=== PATIENT | male | born 1965 | race Caucasian/White ===

== ENCOUNTER 2020-07-06 12:16 | Inpatient (IN) ==
[2020-07-06] MEDS ORDERED: *HR* Dextrose 50 % in Water (Vial) 50 ML VIAL IVP PRN (16:55)
[2020-07-06] MEDS ORDERED: D5% in Water 1,000 ML IVC PRN (16:55)
[2020-07-06] MEDS ORDERED: Dextrose Gel 15 GM/37.5 ML TUBE PO PRN ×2 (16:55)
[2020-07-06] MEDS ORDERED: Insulin DETEMIR 100 UNIT/ML X5UNITS SUBQ SCH (21:00)
[2020-07-06] MEDS: Doxycycline 100 MG CAPSULE PO SCH (21:54)
[2020-07-06] MEDS: *HR* OxyCODONE/APAP 5/325 TABLET PO PRN (21:54)
[2020-07-06] MEDS: Insulin LISPRO 300 UNITS/3 ML VIAL SUBQ SCH (21:55)
[2020-07-06] MEDS: Insulin DETEMIR 100 UNIT/ML per UNIT SUBQ SCH (21:55)
[2020-07-07 06:34] LABS: Basophils % 0.4 %; Eosinophils # 0.6 K/mcL (0.0-0.6); Eosinophils % 5.8 %; Hematocrit 31.6 % (37.5-50.1); Hemoglobin 9.3 g/dL (12.9-16.9); Immature Granulocytes % 1.1 % (0-4); Lymphocytes # 1.6 K/mcL (0.6-4.6); Lymphocytes % 15.1 %; Mean Corpuscular HGB Conc 29.4 g/dL (31.6-35.5); Mean Corpuscular Hemoglobin 25.8 pg (28.0-33.3); Mean Corpuscular Volume 87.8 fL (83.0-100.0); Mean Platelet Volume 9.6 fL (9.4-12.4); Monocytes # 0.9 K/mcL (0.0-1.3); Monocytes % 8.6 %; Neutrophils # 7.5 K/mcL (1.6-8.9); Platelet Count 238 K/mcL (140-400); Red Cell Distribution Width 14.7 % (11.5-14.5); White Blood Count 10.9 K/mcL (4.3-11.1)
[2020-07-07 06:53] LABS: BUN/Creatinine Ratio 21 (6-26); Blood Urea Nitrogen 23 mg/dL (6-20); Calcium 8.8 mg/dL (8.6-10.3); Carbon Dioxide 31 mEq/L (23-29); Chloride 97 mEq/L (98-107); Glucose 238 mg/dL (70-105); Osmolality,Calculated 293 (280-300); Sodium 136 mEq/L (136-145); eGFR For African Americans > 60 (> 60); eGFR For Non-African Americans > 60 (> 60)
[2020-07-07] MEDS: Cholecalciferol (D-3) 1,000 UNIT (25MCG) TABLET PO SCH (08:06)
[2020-07-07] MEDS: Doxycycline 100 MG CAPSULE PO SCH ×2 (08:07→20:11)
[2020-07-07] MEDS: Furosemide 20 MG TABLET PO SCH (08:07)
[2020-07-07] MEDS: Aspirin Enteric Coated 81 MG Tablet PO SCH (08:07)
[2020-07-07] MEDS: levoFLOXacin 500 MG TABLET PO SCH (08:07)
[2020-07-07] MEDS: carvediloL 6.25 MG TABLET PO SCH ×2 (08:07→17:04)
[2020-07-07] MEDS: Insulin LISPRO 300 UNITS/3 ML VIAL SUBQ SCH ×4 (08:08→20:12)
[2020-07-07] MEDS: *HR* Enoxaparin 40 MG/0.4 ML SYRINGE SQ SCH (08:10)
[2020-07-07] MEDS: polyethylene glycoL 3350 17 GM POWD.PACK PO SCH (08:11)
[2020-07-07] MEDS: ZINC 50 MG PO SCH (08:11)
[2020-07-07] MEDS: *HR* OxyCODONE/APAP 5/325 TABLET PO PRN ×3 (08:21→23:44)
[2020-07-07] MEDS: Benzonatate 100 MG CAPSULE PO PRN (10:01)
[2020-07-07] MEDS: Ipratropium/Albuterol Neb 3 ML IH SCH ×3 (13:04→22:09)
[2020-07-07] MEDS: Insulin DETEMIR 100 UNIT/ML per UNIT SUBQ SCH (20:11)
[2020-07-08] MEDS: Ipratropium/Albuterol Neb 3 ML IH SCH ×4 (04:03→22:09)
[2020-07-08] MEDS: *HR* Enoxaparin 40 MG/0.4 ML SYRINGE SQ SCH (09:14)
[2020-07-08] MEDS: Insulin LISPRO 300 UNITS/3 ML VIAL SUBQ SCH ×4 (09:14→21:33)
[2020-07-08] MEDS: Furosemide 20 MG TABLET PO SCH (09:15)
[2020-07-08] MEDS: Cholecalciferol (D-3) 1,000 UNIT (25MCG) TABLET PO SCH (09:15)
[2020-07-08] MEDS: levoFLOXacin 500 MG TABLET PO SCH (09:15)
[2020-07-08] MEDS: *HR* OxyCODONE/APAP 5/325 TABLET PO PRN ×3 (09:15→22:33)
[2020-07-08] MEDS: polyethylene glycoL 3350 17 GM POWD.PACK PO SCH (09:15)
[2020-07-08] MEDS: carvediloL 6.25 MG TABLET PO SCH ×2 (09:15→16:28)
[2020-07-08] MEDS: Doxycycline 100 MG CAPSULE PO SCH ×2 (09:15→21:35)
[2020-07-08] MEDS: Aspirin Enteric Coated 81 MG Tablet PO SCH (09:16)
[2020-07-08] MEDS: ZINC 50 MG PO SCH (09:16)
[2020-07-08] MEDS: Sennosides/Docusate Sodium TABLET PO PRN (16:28)
[2020-07-08] MEDS: Insulin DETEMIR 100 UNIT/ML per UNIT SUBQ SCH (21:33)
[2020-07-09] MEDS: Ipratropium/Albuterol Neb 3 ML IH SCH ×4 (04:16→22:12)
[2020-07-09] MEDS: *HR* OxyCODONE/APAP 5/325 TABLET PO PRN ×3 (06:29→19:34)
[2020-07-09] MEDS: Doxycycline 100 MG CAPSULE PO SCH ×2 (08:39→20:03)
[2020-07-09] MEDS: *HR* Enoxaparin 40 MG/0.4 ML SYRINGE SQ SCH (08:39)
[2020-07-09] MEDS: Furosemide 20 MG TABLET PO SCH (08:39)
[2020-07-09] MEDS: levoFLOXacin 500 MG TABLET PO SCH (08:39)
[2020-07-09] MEDS: carvediloL 6.25 MG TABLET PO SCH ×2 (08:39→16:31)
[2020-07-09] MEDS: Aspirin Enteric Coated 81 MG Tablet PO SCH (08:39)
[2020-07-09] MEDS: Cholecalciferol (D-3) 1,000 UNIT (25MCG) TABLET PO SCH (08:40)
[2020-07-09] MEDS: Insulin LISPRO 300 UNITS/3 ML VIAL SUBQ SCH ×4 (08:40→20:14)
[2020-07-09] MEDS: ZINC 50 MG PO SCH (08:40)
[2020-07-09] MEDS: polyethylene glycoL 3350 17 GM POWD.PACK PO SCH (08:40)
[2020-07-09] MEDS: Sennosides/Docusate Sodium TABLET PO PRN (08:41)
[2020-07-09] MEDS: Benzonatate 100 MG CAPSULE PO PRN ×2 (12:01→20:03)
[2020-07-09] MEDS: Insulin DETEMIR 100 UNIT/ML X5UNITS SUBQ SCH (20:15)
[2020-07-10] MEDS: Ipratropium/Albuterol Neb 3 ML IH SCH ×4 (04:07→21:14)
[2020-07-10] MEDS: Furosemide 20 MG TABLET PO SCH (07:46)
[2020-07-10] MEDS: Doxycycline 100 MG CAPSULE PO SCH ×2 (07:46→21:27)
[2020-07-10] MEDS: carvediloL 6.25 MG TABLET PO SCH ×2 (07:46→16:16)
[2020-07-10] MEDS: *HR* OxyCODONE/APAP 5/325 TABLET PO PRN ×3 (07:46→21:27)
[2020-07-10] MEDS: levoFLOXacin 500 MG TABLET PO SCH (07:47)
[2020-07-10] MEDS: Cholecalciferol (D-3) 1,000 UNIT (25MCG) TABLET PO SCH (07:47)
[2020-07-10] MEDS: Aspirin Enteric Coated 81 MG Tablet PO SCH (07:47)
[2020-07-10] MEDS: Benzonatate 100 MG CAPSULE PO PRN ×2 (07:47→16:16)
[2020-07-10] MEDS: Sennosides/Docusate Sodium TABLET PO PRN (07:47)
[2020-07-10] MEDS: *HR* Enoxaparin 40 MG/0.4 ML SYRINGE SQ SCH (07:48)
[2020-07-10] MEDS: Insulin LISPRO 300 UNITS/3 ML VIAL SUBQ SCH ×4 (07:48→21:28)
[2020-07-10] MEDS: ZINC 50 MG PO SCH (07:55)
[2020-07-10] MEDS: polyethylene glycoL 3350 17 GM POWD.PACK PO SCH (07:55)
[2020-07-10] MEDS: Fluticasone Propionate Nasal 50 MCG/SPRAY BOTTLE NS SCH (09:32)
[2020-07-10 15:51] LABS: Bilirubin,Urine Negative (Negative); Blood,Urine Negative (Negative); Clarity,Urine Clear (Clear); Color,Urine Yellow (Yellow); Glucose,Urine (UA) 100 mg/dL (Normal); Ketones,Urine Negative (Negative); Leukocyte Esterase,Urine Negative (Negative); Nitrite,Urine Negative (Negative); Protein,Urine Negative (Neg-Trace); Urobilinogen,Urine Normal (Normal)
[2020-07-10 16:00] LABS: Mucus,Urine Few per lpf (None-Few)
[2020-07-10] MEDS: Insulin DETEMIR 100 UNIT/ML X5UNITS SUBQ SCH ×2 (21:37→21:43)
[2020-07-11] MEDS: Ipratropium/Albuterol Neb 3 ML IH SCH ×4 (03:45→21:04)
[2020-07-11] MEDS: *HR* OxyCODONE/APAP 5/325 TABLET PO PRN ×3 (05:28→20:50)
[2020-07-11] MEDS: Fluticasone Propionate Nasal 50 MCG/SPRAY BOTTLE NS SCH (07:43)
[2020-07-11] MEDS: Furosemide 20 MG TABLET PO SCH (07:44)
[2020-07-11] MEDS: Benzonatate 100 MG CAPSULE PO PRN ×2 (07:44→20:50)
[2020-07-11] MEDS: Aspirin Enteric Coated 81 MG Tablet PO SCH (07:44)
[2020-07-11] MEDS: Cholecalciferol (D-3) 1,000 UNIT (25MCG) TABLET PO SCH (07:44)
[2020-07-11] MEDS: levoFLOXacin 500 MG TABLET PO SCH (07:44)
[2020-07-11] MEDS: carvediloL 6.25 MG TABLET PO SCH ×2 (07:44→16:48)
[2020-07-11] MEDS: Doxycycline 100 MG CAPSULE PO SCH ×2 (07:45→20:50)
[2020-07-11] MEDS: *HR* Enoxaparin 40 MG/0.4 ML SYRINGE SQ SCH (07:45)
[2020-07-11] MEDS: Insulin LISPRO 300 UNITS/3 ML VIAL SUBQ SCH ×4 (07:46→20:51)
[2020-07-11] MEDS: ZINC 50 MG PO SCH (07:47)
[2020-07-11] MEDS: Sennosides/Docusate Sodium TABLET PO PRN (09:07)
[2020-07-11] MEDS: Insulin DETEMIR 100 UNIT/ML X5UNITS SUBQ SCH ×2 (09:07→20:50)
[2020-07-12] MEDS: Ipratropium/Albuterol Neb 3 ML IH SCH ×4 (04:02→21:23)
[2020-07-12] MEDS: Fluticasone Propionate Nasal 50 MCG/SPRAY BOTTLE NS SCH (08:45)
[2020-07-12] MEDS: Insulin LISPRO 300 UNITS/3 ML VIAL SUBQ SCH ×4 (08:46→20:48)
[2020-07-12] MEDS: Insulin DETEMIR 100 UNIT/ML X5UNITS SUBQ SCH ×2 (08:46→20:48)
[2020-07-12] MEDS: *HR* Enoxaparin 40 MG/0.4 ML SYRINGE SQ SCH (08:47)
[2020-07-12] MEDS: Sennosides/Docusate Sodium TABLET PO PRN (08:52)
[2020-07-12] MEDS: Cholecalciferol (D-3) 1,000 UNIT (25MCG) TABLET PO SCH (08:52)
[2020-07-12] MEDS: Aspirin Enteric Coated 81 MG Tablet PO SCH (08:52)
[2020-07-12] MEDS: Doxycycline 100 MG CAPSULE PO SCH ×2 (08:52→20:49)
[2020-07-12] MEDS: *HR* OxyCODONE/APAP 5/325 TABLET PO PRN ×2 (08:52→15:06)
[2020-07-12] MEDS: levoFLOXacin 500 MG TABLET PO SCH (08:52)
[2020-07-12] MEDS: carvediloL 6.25 MG TABLET PO SCH ×2 (08:53→17:40)
[2020-07-12] MEDS: Furosemide 20 MG TABLET PO SCH (08:53)
[2020-07-12] MEDS: ZINC 50 MG PO SCH (08:54)
[2020-07-12] MEDS: Benzonatate 100 MG CAPSULE PO PRN (15:06)
[2020-07-13] MEDS: *HR* OxyCODONE/APAP 5/325 TABLET PO PRN ×3 (03:30→17:18)
[2020-07-13] MEDS: Ipratropium/Albuterol Neb 3 ML IH SCH ×4 (03:55→21:00)
[2020-07-13 05:25] LABS: Basophils % 0.5 %; Eosinophils # 0.6 K/mcL (0.0-0.6); Eosinophils % 6.6 %; Hematocrit 32.2 % (37.5-50.1); Hemoglobin 9.6 g/dL (12.9-16.9); Immature Granulocytes % 1.4 % (0-4); Lymphocytes # 1.5 K/mcL (0.6-4.6); Lymphocytes % 16.9 %; Mean Corpuscular HGB Conc 29.8 g/dL (31.6-35.5); Mean Corpuscular Hemoglobin 25.8 pg (28.0-33.3); Mean Corpuscular Volume 86.6 fL (83.0-100.0); Mean Platelet Volume 10.1 fL (9.4-12.4); Monocytes # 0.8 K/mcL (0.0-1.3); Neutrophils # 5.8 K/mcL (1.6-8.9); Platelet Count 274 K/mcL (140-400); Red Blood Count 3.72 M/mcL (4.19-5.50); Red Cell Distribution Width 14.8 % (11.5-14.5); Segmented Neutrophils % 65.6 %; White Blood Count 8.9 K/mcL (4.3-11.1)
[2020-07-13 06:03] LABS: BUN/Creatinine Ratio 24 (6-26); Blood Urea Nitrogen 25 mg/dL (6-20); Calcium 8.8 mg/dL (8.6-10.3); Carbon Dioxide 29 mEq/L (23-29); Chloride 99 mEq/L (98-107); Glucose 259 mg/dL (70-105); Osmolality,Calculated 295 (280-300); Sodium 136 mEq/L (136-145); eGFR For African Americans > 60 (> 60); eGFR For Non-African Americans > 60 (> 60)
[2020-07-13] MEDS: Insulin LISPRO 300 UNITS/3 ML VIAL SUBQ SCH ×4 (08:32→21:20)
[2020-07-13] MEDS: Fluticasone Propionate Nasal 50 MCG/SPRAY BOTTLE NS SCH (08:32)
[2020-07-13] MEDS: *HR* Enoxaparin 40 MG/0.4 ML SYRINGE SQ SCH (08:32)
[2020-07-13] MEDS: Furosemide 20 MG TABLET PO SCH (08:33)
[2020-07-13] MEDS: Doxycycline 100 MG CAPSULE PO SCH ×2 (08:34→21:20)
[2020-07-13] MEDS: levoFLOXacin 500 MG TABLET PO SCH (08:34)
[2020-07-13] MEDS: carvediloL 6.25 MG TABLET PO SCH ×2 (08:34→17:18)
[2020-07-13] MEDS: Aspirin Enteric Coated 81 MG Tablet PO SCH (08:34)
[2020-07-13] MEDS: Cholecalciferol (D-3) 1,000 UNIT (25MCG) TABLET PO SCH (08:34)
[2020-07-13] MEDS: ZINC 50 MG PO SCH (08:42)
[2020-07-13] MEDS: Insulin DETEMIR 100 UNIT/ML X5UNITS SUBQ SCH ×2 (08:54→21:20)
[2020-07-13] MEDS: Benzonatate 100 MG CAPSULE PO PRN (13:46)
[2020-07-14] MEDS: *HR* OxyCODONE/APAP 5/325 TABLET PO PRN ×3 (00:37→20:20)
[2020-07-14] MEDS: Ipratropium/Albuterol Neb 3 ML IH SCH ×4 (03:51→22:45)
[2020-07-14] MEDS: carvediloL 6.25 MG TABLET PO SCH ×2 (08:23→17:16)
[2020-07-14] MEDS: Furosemide 20 MG TABLET PO SCH (08:23)
[2020-07-14] MEDS: Doxycycline 100 MG CAPSULE PO SCH ×2 (08:23→20:20)
[2020-07-14] MEDS: Aspirin Enteric Coated 81 MG Tablet PO SCH (08:27)
[2020-07-14] MEDS: Cholecalciferol (D-3) 1,000 UNIT (25MCG) TABLET PO SCH (08:27)
[2020-07-14] MEDS: Insulin DETEMIR 100 UNIT/ML X5UNITS SUBQ SCH ×2 (08:28→20:21)
[2020-07-14] MEDS: levoFLOXacin 500 MG TABLET PO SCH (08:28)
[2020-07-14] MEDS: *HR* Enoxaparin 40 MG/0.4 ML SYRINGE SQ SCH (08:28)
[2020-07-14] MEDS: Insulin LISPRO 300 UNITS/3 ML VIAL SUBQ SCH ×4 (08:28→20:21)
[2020-07-14] MEDS: Fluticasone Propionate Nasal 50 MCG/SPRAY BOTTLE NS SCH (08:28)
[2020-07-14] MEDS: ZINC 50 MG PO SCH (08:29)
[2020-07-14] MEDS: Benzonatate 100 MG CAPSULE PO PRN ×2 (10:53→20:19)
[2020-07-14] MEDS: Sennosides/Docusate Sodium TABLET PO PRN (13:51)
[2020-07-15] MEDS: Ipratropium/Albuterol Neb 3 ML IH SCH ×4 (04:12→21:21)
[2020-07-15] MEDS: Insulin DETEMIR 100 UNIT/ML X5UNITS SUBQ SCH ×2 (08:36→21:44)
[2020-07-15] MEDS: Insulin LISPRO 300 UNITS/3 ML VIAL SUBQ SCH ×4 (08:37→21:44)
[2020-07-15] MEDS: *HR* Enoxaparin 40 MG/0.4 ML SYRINGE SQ SCH (08:39)
[2020-07-15] MEDS: Fluticasone Propionate Nasal 50 MCG/SPRAY BOTTLE NS SCH (08:40)
[2020-07-15] MEDS: ZINC 50 MG PO SCH (08:41)
[2020-07-15] MEDS: Cholecalciferol (D-3) 1,000 UNIT (25MCG) TABLET PO SCH (08:41)
[2020-07-15] MEDS: carvediloL 6.25 MG TABLET PO SCH ×2 (08:42→16:22)
[2020-07-15] MEDS: levoFLOXacin 500 MG TABLET PO SCH (08:42)
[2020-07-15] MEDS: Aspirin Enteric Coated 81 MG Tablet PO SCH (08:42)
[2020-07-15] MEDS: Doxycycline 100 MG CAPSULE PO SCH ×2 (08:43→21:44)
[2020-07-15] MEDS: Furosemide 40 MG TABLET PO SCH (09:02)
[2020-07-15] MEDS: *HR* OxyCODONE/APAP 5/325 TABLET PO PRN ×2 (09:05→21:44)
[2020-07-15] MEDS: Sennosides/Docusate Sodium TABLET PO PRN (12:01)
[2020-07-15] MEDS: Benzonatate 100 MG CAPSULE PO PRN (12:05)
[2020-07-16] MEDS: Ipratropium/Albuterol Neb 3 ML IH SCH ×4 (03:10→21:14)
[2020-07-16] MEDS: carvediloL 6.25 MG TABLET PO SCH ×2 (08:57→16:26)
[2020-07-16] MEDS: Aspirin Enteric Coated 81 MG Tablet PO SCH (08:57)
[2020-07-16] MEDS: Furosemide 40 MG TABLET PO SCH (08:58)
[2020-07-16] MEDS: Cholecalciferol (D-3) 1,000 UNIT (25MCG) TABLET PO SCH (08:58)
[2020-07-16] MEDS: Doxycycline 100 MG CAPSULE PO SCH ×2 (08:59→21:59)
[2020-07-16] MEDS: levoFLOXacin 500 MG TABLET PO SCH (08:59)
[2020-07-16] MEDS: *HR* Enoxaparin 40 MG/0.4 ML SYRINGE SQ SCH (08:59)
[2020-07-16] MEDS: Insulin DETEMIR 100 UNIT/ML X5UNITS SUBQ SCH ×2 (09:01→22:00)
[2020-07-16] MEDS: Insulin LISPRO 300 UNITS/3 ML VIAL SUBQ SCH ×4 (09:01→22:00)
[2020-07-16] MEDS: Fluticasone Propionate Nasal 50 MCG/SPRAY BOTTLE NS SCH (09:02)
[2020-07-16] MEDS: Sennosides/Docusate Sodium TABLET PO PRN (09:07)
[2020-07-16] MEDS: *HR* OxyCODONE/APAP 5/325 TABLET PO PRN ×2 (09:07→16:30)
[2020-07-16] MEDS: Benzonatate 100 MG CAPSULE PO PRN ×2 (09:07→22:00)
[2020-07-16] MEDS: ZINC 50 MG PO SCH (09:10)
[2020-07-16] MEDS: Loratadine 10 MG TABLET PO SCH (13:25)
[2020-07-17] MEDS: *HR* OxyCODONE/APAP 5/325 TABLET PO PRN ×3 (01:32→17:44)
[2020-07-17] MEDS: Ipratropium/Albuterol Neb 3 ML IH SCH ×4 (03:33→22:05)
[2020-07-17] MEDS: carvediloL 6.25 MG TABLET PO SCH ×2 (10:09→17:44)
[2020-07-17] MEDS: Furosemide 40 MG TABLET PO SCH (10:10)
[2020-07-17] MEDS: Aspirin Enteric Coated 81 MG Tablet PO SCH (10:10)
[2020-07-17] MEDS: Loratadine 10 MG TABLET PO SCH (10:10)
[2020-07-17] MEDS: Doxycycline 100 MG CAPSULE PO SCH ×2 (10:10→20:37)
[2020-07-17] MEDS: levoFLOXacin 500 MG TABLET PO SCH (10:10)
[2020-07-17] MEDS: Fluticasone Propionate Nasal 50 MCG/SPRAY BOTTLE NS SCH (10:11)
[2020-07-17] MEDS: *HR* Enoxaparin 40 MG/0.4 ML SYRINGE SQ SCH (10:11)
[2020-07-17] MEDS: ZINC 50 MG PO SCH (10:11)
[2020-07-17] MEDS: Insulin DETEMIR 100 UNIT/ML X5UNITS SUBQ SCH ×2 (10:11→20:38)
[2020-07-17] MEDS: Cholecalciferol (D-3) 1,000 UNIT (25MCG) TABLET PO SCH (10:11)
[2020-07-17] MEDS: Insulin LISPRO 300 UNITS/3 ML VIAL SUBQ SCH ×4 (10:12→20:38)
[2020-07-17] MEDS: Benzonatate 100 MG CAPSULE PO PRN ×2 (10:17→20:37)
[2020-07-17] MEDS: Sennosides/Docusate Sodium TABLET PO PRN (10:17)
[2020-07-17] MEDS ORDERED: Loratadine 10 MG TABLET PO SCH (11:09)
[2020-07-18] MEDS: *HR* OxyCODONE/APAP 5/325 TABLET PO PRN ×3 (02:07→16:45)
[2020-07-18] MEDS: Ipratropium/Albuterol Neb 3 ML IH SCH ×4 (04:05→21:57)
[2020-07-18 08:46] LABS: Basophils % 0.3 %; Eosinophils # 0.9 K/mcL (0.0-0.6); Eosinophils % 10.1 %; Hematocrit 37.7 % (37.5-50.1); Hemoglobin 11.1 g/dL (12.9-16.9); Immature Granulocytes % 0.7 % (0-4); Lymphocytes # 1.7 K/mcL (0.6-4.6); Lymphocytes % 18.8 %; Mean Corpuscular HGB Conc 29.4 g/dL (31.6-35.5); Mean Corpuscular Hemoglobin 25.2 pg (28.0-33.3); Mean Corpuscular Volume 85.5 fL (83.0-100.0); Mean Platelet Volume 10.4 fL (9.4-12.4); Monocytes # 0.7 K/mcL (0.0-1.3); Monocytes % 7.6 %; Neutrophils # 5.6 K/mcL (1.6-8.9); Platelet Count 311 K/mcL (140-400); Red Blood Count 4.41 M/mcL (4.19-5.50); Red Cell Distribution Width 14.7 % (11.5-14.5); Segmented Neutrophils % 62.5 %
[2020-07-18 08:54] LABS: BUN/Creatinine Ratio 22 (6-26); Blood Urea Nitrogen 23 mg/dL (6-20); Calcium 9.2 mg/dL (8.6-10.3); Carbon Dioxide 28 mEq/L (23-29); Chloride 99 mEq/L (98-107); Glucose 182 mg/dL (70-105); Osmolality,Calculated 292 (280-300); Potassium 4.1 mEq/L (3.5-5.1); Sodium 137 mEq/L (136-145); eGFR For African Americans > 60 (> 60); eGFR For Non-African Americans > 60 (> 60)
[2020-07-18] MEDS: ZINC 50 MG PO SCH (09:10)
[2020-07-18] MEDS: Doxycycline 100 MG CAPSULE PO SCH ×2 (09:19→21:11)
[2020-07-18] MEDS: Aspirin Enteric Coated 81 MG Tablet PO SCH (09:19)
[2020-07-18] MEDS: Furosemide 40 MG TABLET PO SCH (09:19)
[2020-07-18] MEDS: carvediloL 6.25 MG TABLET PO SCH ×2 (09:19→16:39)
[2020-07-18] MEDS: Loratadine 10 MG TABLET PO SCH (09:20)
[2020-07-18] MEDS: Cholecalciferol (D-3) 1,000 UNIT (25MCG) TABLET PO SCH (09:20)
[2020-07-18] MEDS: levoFLOXacin 500 MG TABLET PO SCH (09:20)
[2020-07-18] MEDS: Benzonatate 100 MG CAPSULE PO PRN ×2 (09:20→16:45)
[2020-07-18] MEDS: Insulin DETEMIR 100 UNIT/ML X5UNITS SUBQ SCH ×2 (09:21→21:11)
[2020-07-18] MEDS: Insulin LISPRO 300 UNITS/3 ML VIAL SUBQ SCH ×4 (09:21→21:12)
[2020-07-18] MEDS: *HR* Enoxaparin 40 MG/0.4 ML SYRINGE SQ SCH (09:21)
[2020-07-18] MEDS: Fluticasone Propionate Nasal 50 MCG/SPRAY BOTTLE NS SCH (09:22)
[2020-07-18] MEDS: Sennosides/Docusate Sodium TABLET PO PRN (21:10)
[2020-07-19] MEDS: Ipratropium/Albuterol Neb 3 ML IH SCH ×4 (04:19→21:18)
[2020-07-19] MEDS: Fluticasone Propionate Nasal 50 MCG/SPRAY BOTTLE NS SCH (08:57)
[2020-07-19] MEDS: Insulin DETEMIR 100 UNIT/ML X5UNITS SUBQ SCH ×2 (08:58→21:41)
[2020-07-19] MEDS: Insulin LISPRO 300 UNITS/3 ML VIAL SUBQ SCH ×4 (08:58→21:40)
[2020-07-19] MEDS: Aspirin Enteric Coated 81 MG Tablet PO SCH (08:59)
[2020-07-19] MEDS: *HR* Enoxaparin 40 MG/0.4 ML SYRINGE SQ SCH (08:59)
[2020-07-19] MEDS: *HR* OxyCODONE/APAP 5/325 TABLET PO PRN ×3 (08:59→21:44)
[2020-07-19] MEDS: Cholecalciferol (D-3) 1,000 UNIT (25MCG) TABLET PO SCH (09:01)
[2020-07-19] MEDS: levoFLOXacin 500 MG TABLET PO SCH (09:01)
[2020-07-19] MEDS: Loratadine 10 MG TABLET PO SCH (09:01)
[2020-07-19] MEDS: Doxycycline 100 MG CAPSULE PO SCH ×2 (09:02→21:39)
[2020-07-19] MEDS: carvediloL 6.25 MG TABLET PO SCH ×2 (09:02→15:58)
[2020-07-19] MEDS: Furosemide 40 MG TABLET PO SCH (09:02)
[2020-07-19] MEDS: ZINC 50 MG PO SCH (09:03)
[2020-07-19] MEDS: Sennosides/Docusate Sodium TABLET PO PRN ×2 (11:39→21:39)
[2020-07-19] MEDS: Benzonatate 100 MG CAPSULE PO PRN (21:44)
[2020-07-20] MEDS: Ipratropium/Albuterol Neb 3 ML IH SCH ×4 (04:30→21:09)
[2020-07-20] MEDS: Furosemide 40 MG TABLET PO SCH (08:32)
[2020-07-20] MEDS: Fluticasone Propionate Nasal 50 MCG/SPRAY BOTTLE NS SCH (08:32)
[2020-07-20] MEDS: Aspirin Enteric Coated 81 MG Tablet PO SCH (08:33)
[2020-07-20] MEDS: Loratadine 10 MG TABLET PO SCH (08:33)
[2020-07-20] MEDS: carvediloL 6.25 MG TABLET PO SCH ×2 (08:33→16:59)
[2020-07-20] MEDS: levoFLOXacin 500 MG TABLET PO SCH (08:33)
[2020-07-20] MEDS: Cholecalciferol (D-3) 1,000 UNIT (25MCG) TABLET PO SCH (08:33)
[2020-07-20] MEDS: Doxycycline 100 MG CAPSULE PO SCH (08:33)
[2020-07-20] MEDS: *HR* Enoxaparin 40 MG/0.4 ML SYRINGE SQ SCH (08:34)
[2020-07-20] MEDS: Insulin LISPRO 300 UNITS/3 ML VIAL SUBQ SCH ×4 (08:34→20:21)
[2020-07-20] MEDS: Sennosides/Docusate Sodium TABLET PO PRN ×2 (08:47→21:00)
[2020-07-20] MEDS: Benzonatate 100 MG CAPSULE PO PRN (08:47)
[2020-07-20] MEDS: *HR* OxyCODONE/APAP 5/325 TABLET PO PRN ×3 (08:48→21:36)
[2020-07-20] MEDS: Insulin DETEMIR 100 UNIT/ML X5UNITS SUBQ SCH ×2 (08:49→20:21)
[2020-07-20] MEDS: ZINC 50 MG PO SCH (08:58)
[2020-07-21] MEDS: Ipratropium/Albuterol Neb 3 ML IH SCH ×4 (04:53→21:36)
[2020-07-21] MEDS: *HR* OxyCODONE/APAP 5/325 TABLET PO PRN ×3 (08:01→20:31)
[2020-07-21] MEDS: Loratadine 10 MG TABLET PO SCH (08:04)
[2020-07-21] MEDS: Furosemide 40 MG TABLET PO SCH (08:05)
[2020-07-21] MEDS: Insulin DETEMIR 100 UNIT/ML X5UNITS SUBQ SCH ×2 (08:06→20:32)
[2020-07-21] MEDS: Aspirin Enteric Coated 81 MG Tablet PO SCH (08:06)
[2020-07-21] MEDS: carvediloL 6.25 MG TABLET PO SCH ×2 (08:06→17:07)
[2020-07-21] MEDS: *HR* Enoxaparin 40 MG/0.4 ML SYRINGE SQ SCH (08:06)
[2020-07-21] MEDS: Cholecalciferol (D-3) 1,000 UNIT (25MCG) TABLET PO SCH (08:06)
[2020-07-21] MEDS: Insulin LISPRO 300 UNITS/3 ML VIAL SUBQ SCH ×5 (08:07→20:32)
[2020-07-21] MEDS: ZINC 50 MG PO SCH (08:07)
[2020-07-21] MEDS: Fluticasone Propionate Nasal 50 MCG/SPRAY BOTTLE NS SCH (08:07)
[2020-07-21] MEDS: Sennosides/Docusate Sodium TABLET PO PRN ×2 (08:15→17:08)
[2020-07-21] MEDS: Benzonatate 100 MG CAPSULE PO PRN (08:15)
[2020-07-22] MEDS: Ipratropium/Albuterol Neb 3 ML IH SCH ×4 (02:59→22:28)
[2020-07-22] MEDS: *HR* OxyCODONE/APAP 5/325 TABLET PO PRN ×4 (03:19→21:55)
[2020-07-22] MEDS: Fluticasone Propionate Nasal 50 MCG/SPRAY BOTTLE NS SCH (09:00)
[2020-07-22] MEDS: Insulin DETEMIR 100 UNIT/ML X5UNITS SUBQ SCH ×2 (09:01→20:51)
[2020-07-22] MEDS: Furosemide 40 MG TABLET PO SCH (09:01)
[2020-07-22] MEDS: Insulin LISPRO 300 UNITS/3 ML VIAL SUBQ SCH ×7 (09:01→20:52)
[2020-07-22] MEDS: *HR* Enoxaparin 40 MG/0.4 ML SYRINGE SQ SCH (09:01)
[2020-07-22] MEDS: Cholecalciferol (D-3) 1,000 UNIT (25MCG) TABLET PO SCH (09:02)
[2020-07-22] MEDS: ZINC 50 MG PO SCH (09:02)
[2020-07-22] MEDS: Aspirin Enteric Coated 81 MG Tablet PO SCH (09:02)
[2020-07-22] MEDS: Loratadine 10 MG TABLET PO SCH (09:02)
[2020-07-22] MEDS: carvediloL 6.25 MG TABLET PO SCH ×2 (09:02→17:45)
[2020-07-22] MEDS: Sennosides/Docusate Sodium TABLET PO PRN ×2 (09:48→21:02)
[2020-07-22] MEDS: Benzonatate 100 MG CAPSULE PO PRN ×2 (09:49→21:02)
[2020-07-22] MEDS: Nystatin POWDER 30 GM BOTTLE TP SCH ×2 (15:48→20:54)
[2020-07-23] MEDS: Ipratropium/Albuterol Neb 3 ML IH SCH ×4 (04:30→22:18)
[2020-07-23] MEDS: *HR* OxyCODONE/APAP 5/325 TABLET PO PRN ×3 (05:12→18:12)
[2020-07-23] MEDS: Furosemide 40 MG TABLET PO SCH (08:21)
[2020-07-23] MEDS: Aspirin Enteric Coated 81 MG Tablet PO SCH (08:21)
[2020-07-23] MEDS: carvediloL 6.25 MG TABLET PO SCH ×2 (08:21→16:51)
[2020-07-23] MEDS: ZINC 50 MG PO SCH (08:22)
[2020-07-23] MEDS: *HR* Enoxaparin 40 MG/0.4 ML SYRINGE SQ SCH (08:22)
[2020-07-23] MEDS: Loratadine 10 MG TABLET PO SCH (08:22)
[2020-07-23] MEDS: Fluticasone Propionate Nasal 50 MCG/SPRAY BOTTLE NS SCH (08:22)
[2020-07-23] MEDS: Cholecalciferol (D-3) 1,000 UNIT (25MCG) TABLET PO SCH (08:22)
[2020-07-23] MEDS: Insulin DETEMIR 100 UNIT/ML X5UNITS SUBQ SCH ×2 (08:23→20:37)
[2020-07-23] MEDS: Insulin LISPRO 300 UNITS/3 ML VIAL SUBQ SCH ×7 (08:23→20:37)
[2020-07-23] MEDS: Nystatin POWDER 30 GM BOTTLE TP SCH ×3 (08:24→20:38)
[2020-07-23] MEDS: Sennosides/Docusate Sodium TABLET PO PRN (11:18)
[2020-07-23] MEDS ORDERED: Bisacodyl 10 MG RECTAL SUPPOSITORY RC ONE (17:46)
[2020-07-23] MEDS ORDERED: Milk and Molasses Enema 200 ML RC ONE (22:45)
[2020-07-24] MEDS: *HR* OxyCODONE/APAP 5/325 TABLET PO PRN ×3 (02:18→14:56)
[2020-07-24] MEDS: Ipratropium/Albuterol Neb 3 ML IH SCH ×4 (04:13→22:21)
[2020-07-24 06:04] LABS: Basophils % 0.3 %; Eosinophils % 10.8 %; Hematocrit 34.8 % (37.5-50.1); Hemoglobin 10.5 g/dL (12.9-16.9); Immature Granulocytes % 0.8 % (0-4); Lymphocytes # 1.6 K/mcL (0.6-4.6); Lymphocytes % 17.7 %; Mean Corpuscular HGB Conc 30.2 g/dL (31.6-35.5); Mean Corpuscular Hemoglobin 25.5 pg (28.0-33.3); Mean Corpuscular Volume 84.7 fL (83.0-100.0); Mean Platelet Volume 10.9 fL (9.4-12.4); Monocytes # 0.8 K/mcL (0.0-1.3); Monocytes % 8.9 %; Neutrophils # 5.5 K/mcL (1.6-8.9); Platelet Count 249 K/mcL (140-400); Red Blood Count 4.11 M/mcL (4.19-5.50); Red Cell Distribution Width 14.6 % (11.5-14.5); Segmented Neutrophils % 61.5 %
[2020-07-24 06:21] LABS: BUN/Creatinine Ratio 25 (6-26); Blood Urea Nitrogen 25 mg/dL (6-20); Carbon Dioxide 28 mEq/L (23-29); Chloride 101 mEq/L (98-107); Glucose 177 mg/dL (70-105); Osmolality,Calculated 295 (280-300); Sodium 138 mEq/L (136-145); eGFR For African Americans > 60 (> 60); eGFR For Non-African Americans > 60 (> 60)
[2020-07-24] MEDS: Insulin LISPRO 300 UNITS/3 ML VIAL SUBQ SCH ×7 (08:38→21:18)
[2020-07-24] MEDS: Fluticasone Propionate Nasal 50 MCG/SPRAY BOTTLE NS SCH (08:38)
[2020-07-24] MEDS: *HR* Enoxaparin 40 MG/0.4 ML SYRINGE SQ SCH (08:39)
[2020-07-24] MEDS: Aspirin Enteric Coated 81 MG Tablet PO SCH (08:39)
[2020-07-24] MEDS: Furosemide 40 MG TABLET PO SCH (08:40)
[2020-07-24] MEDS: Cholecalciferol (D-3) 1,000 UNIT (25MCG) TABLET PO SCH (08:41)
[2020-07-24] MEDS: carvediloL 6.25 MG TABLET PO SCH ×2 (08:41→17:19)
[2020-07-24] MEDS: ZINC 50 MG PO SCH (08:41)
[2020-07-24] MEDS: Insulin DETEMIR 100 UNIT/ML X5UNITS SUBQ SCH ×2 (08:41→21:16)
[2020-07-24] MEDS: Loratadine 10 MG TABLET PO SCH (08:41)
[2020-07-24] MEDS: Nystatin POWDER 30 GM BOTTLE TP SCH ×3 (08:41→21:18)
[2020-07-24] MEDS: Sennosides/Docusate Sodium TABLET PO PRN (14:56)
[2020-07-25] MEDS: *HR* OxyCODONE/APAP 5/325 TABLET PO PRN ×4 (01:25→21:07)
[2020-07-25] MEDS: Ipratropium/Albuterol Neb 3 ML IH SCH ×2 (04:23→10:21)
[2020-07-25] MEDS: Insulin LISPRO 300 UNITS/3 ML VIAL SUBQ SCH ×7 (08:37→21:09)
[2020-07-25] MEDS: Insulin DETEMIR 100 UNIT/ML X5UNITS SUBQ SCH ×2 (08:38→21:09)
[2020-07-25] MEDS: *HR* Enoxaparin 40 MG/0.4 ML SYRINGE SQ SCH (08:38)
[2020-07-25] MEDS: carvediloL 6.25 MG TABLET PO SCH ×2 (08:42→17:12)
[2020-07-25] MEDS: Cholecalciferol (D-3) 1,000 UNIT (25MCG) TABLET PO SCH (08:42)
[2020-07-25] MEDS: Furosemide 40 MG TABLET PO SCH (08:42)
[2020-07-25] MEDS: Fluticasone Propionate Nasal 50 MCG/SPRAY BOTTLE NS SCH (08:42)
[2020-07-25] MEDS: Aspirin Enteric Coated 81 MG Tablet PO SCH (08:42)
[2020-07-25] MEDS: Loratadine 10 MG TABLET PO SCH (08:42)
[2020-07-25] MEDS: ZINC 50 MG PO SCH (08:43)
[2020-07-25] MEDS: Nystatin POWDER 30 GM BOTTLE TP SCH ×2 (08:43→15:01)
[2020-07-25] MEDS: Sennosides/Docusate Sodium TABLET PO PRN ×2 (08:56→15:30)
[2020-07-25] MEDS ORDERED: Ipratropium/Albuterol Neb 3 ML IH PRN (14:07)
[2020-07-26] MEDS: Nystatin POWDER 30 GM BOTTLE TP SCH ×4 (07:40→23:32)
[2020-07-26] MEDS: Furosemide 40 MG TABLET PO SCH (07:44)
[2020-07-26] MEDS: Loratadine 10 MG TABLET PO SCH (07:44)
[2020-07-26] MEDS: Sennosides/Docusate Sodium TABLET PO SCH ×2 (07:44→20:10)
[2020-07-26] MEDS: carvediloL 6.25 MG TABLET PO SCH ×2 (07:45→17:03)
[2020-07-26] MEDS: Aspirin Enteric Coated 81 MG Tablet PO SCH (07:45)
[2020-07-26] MEDS: *HR* OxyCODONE/APAP 5/325 TABLET PO PRN ×3 (07:45→23:31)
[2020-07-26] MEDS: Fluticasone Propionate Nasal 50 MCG/SPRAY BOTTLE NS SCH (07:45)
[2020-07-26] MEDS: Cholecalciferol (D-3) 1,000 UNIT (25MCG) TABLET PO SCH (07:46)
[2020-07-26] MEDS: *HR* Enoxaparin 40 MG/0.4 ML SYRINGE SQ SCH (07:46)
[2020-07-26] MEDS: Insulin LISPRO 300 UNITS/3 ML VIAL SUBQ SCH ×7 (07:46→20:11)
[2020-07-26] MEDS: ZINC 50 MG PO SCH (07:47)
[2020-07-26] MEDS: Insulin DETEMIR 100 UNIT/ML X5UNITS SUBQ SCH ×2 (08:29→20:11)
[2020-07-27] MEDS: carvediloL 6.25 MG TABLET PO SCH ×2 (08:08→18:03)
[2020-07-27] MEDS: Loratadine 10 MG TABLET PO SCH (08:08)
[2020-07-27] MEDS: Aspirin Enteric Coated 81 MG Tablet PO SCH (08:08)
[2020-07-27] MEDS: Fluticasone Propionate Nasal 50 MCG/SPRAY BOTTLE NS SCH (08:09)
[2020-07-27] MEDS: Cholecalciferol (D-3) 1,000 UNIT (25MCG) TABLET PO SCH (08:09)
[2020-07-27] MEDS: *HR* Enoxaparin 40 MG/0.4 ML SYRINGE SQ SCH (08:09)
[2020-07-27] MEDS: *HR* OxyCODONE/APAP 5/325 TABLET PO PRN ×3 (08:09→20:56)
[2020-07-27] MEDS: Insulin LISPRO 300 UNITS/3 ML VIAL SUBQ SCH ×7 (08:10→20:51)
[2020-07-27] MEDS: Insulin DETEMIR 100 UNIT/ML X5UNITS SUBQ SCH ×2 (08:10→20:50)
[2020-07-27] MEDS: Nystatin POWDER 30 GM BOTTLE TP SCH ×3 (08:11→20:56)
[2020-07-27] MEDS: ZINC 50 MG PO SCH (08:11)
[2020-07-27] MEDS: Furosemide 40 MG TABLET PO SCH (13:22)
[2020-07-27] MEDS: Sennosides/Docusate Sodium TABLET PO SCH ×2 (13:24→20:55)
[2020-07-28] MEDS: *HR* OxyCODONE/APAP 5/325 TABLET PO PRN ×3 (06:57→21:46)
[2020-07-28] MEDS: Fluticasone Propionate Nasal 50 MCG/SPRAY BOTTLE NS SCH (07:52)
[2020-07-28] MEDS: carvediloL 6.25 MG TABLET PO SCH ×2 (07:53→16:32)
[2020-07-28] MEDS: Aspirin Enteric Coated 81 MG Tablet PO SCH (07:53)
[2020-07-28] MEDS: Sennosides/Docusate Sodium TABLET PO SCH ×2 (07:53→21:46)
[2020-07-28] MEDS: Cholecalciferol (D-3) 1,000 UNIT (25MCG) TABLET PO SCH (07:53)
[2020-07-28] MEDS: Loratadine 10 MG TABLET PO SCH (07:54)
[2020-07-28] MEDS: Furosemide 40 MG TABLET PO SCH (07:54)
[2020-07-28] MEDS: Nystatin POWDER 30 GM BOTTLE TP SCH ×3 (07:55→21:49)
[2020-07-28] MEDS: ZINC 50 MG PO SCH (07:55)
[2020-07-28] MEDS: *HR* Enoxaparin 40 MG/0.4 ML SYRINGE SQ SCH (07:55)
[2020-07-28] MEDS: Insulin LISPRO 300 UNITS/3 ML VIAL SUBQ SCH ×7 (07:58→21:47)
[2020-07-28] MEDS: Insulin DETEMIR 100 UNIT/ML X5UNITS SUBQ SCH ×2 (08:05→21:47)
[2020-07-29] MEDS: *HR* OxyCODONE/APAP 5/325 TABLET PO PRN ×3 (05:16→17:39)
[2020-07-29] MEDS: Fluticasone Propionate Nasal 50 MCG/SPRAY BOTTLE NS SCH (08:55)
[2020-07-29] MEDS: Cholecalciferol (D-3) 1,000 UNIT (25MCG) TABLET PO SCH (08:55)
[2020-07-29] MEDS: Furosemide 40 MG TABLET PO SCH (08:55)
[2020-07-29] MEDS: Sennosides/Docusate Sodium TABLET PO SCH ×3 (08:56→21:56)
[2020-07-29] MEDS: carvediloL 6.25 MG TABLET PO SCH ×2 (08:56→16:10)
[2020-07-29] MEDS: Aspirin Enteric Coated 81 MG Tablet PO SCH (08:56)
[2020-07-29] MEDS: Loratadine 10 MG TABLET PO SCH (08:57)
[2020-07-29] MEDS: *HR* Enoxaparin 40 MG/0.4 ML SYRINGE SQ SCH (08:57)
[2020-07-29] MEDS: Insulin DETEMIR 100 UNIT/ML X5UNITS SUBQ SCH ×2 (08:57→21:58)
[2020-07-29] MEDS: Insulin LISPRO 300 UNITS/3 ML VIAL SUBQ SCH ×7 (08:58→21:57)
[2020-07-29] MEDS: Nystatin POWDER 30 GM BOTTLE TP SCH ×3 (09:04→19:50)
[2020-07-29] MEDS: ZINC 50 MG PO SCH (10:26)
[2020-07-30] MEDS: *HR* OxyCODONE/APAP 5/325 TABLET PO PRN ×3 (00:57→15:46)
[2020-07-30] MEDS: Sennosides/Docusate Sodium TABLET PO SCH ×2 (07:35→21:36)
[2020-07-30] MEDS: Fluticasone Propionate Nasal 50 MCG/SPRAY BOTTLE NS SCH (07:35)
[2020-07-30] MEDS: Nystatin POWDER 30 GM BOTTLE TP SCH ×3 (07:35→21:38)
[2020-07-30] MEDS: *HR* Enoxaparin 40 MG/0.4 ML SYRINGE SQ SCH (07:35)
[2020-07-30] MEDS: Furosemide 40 MG TABLET PO SCH (07:35)
[2020-07-30] MEDS: Aspirin Enteric Coated 81 MG Tablet PO SCH (07:36)
[2020-07-30] MEDS: Cholecalciferol (D-3) 1,000 UNIT (25MCG) TABLET PO SCH (07:36)
[2020-07-30] MEDS: carvediloL 6.25 MG TABLET PO SCH ×2 (07:36→15:46)
[2020-07-30] MEDS: ZINC 50 MG PO SCH (07:37)
[2020-07-30] MEDS: Loratadine 10 MG TABLET PO SCH (07:37)
[2020-07-30] MEDS: Insulin LISPRO 300 UNITS/3 ML VIAL SUBQ SCH ×7 (07:37→21:37)
[2020-07-30] MEDS: Insulin DETEMIR 100 UNIT/ML X5UNITS SUBQ SCH ×2 (07:53→21:37)
[2020-07-31] MEDS: *HR* OxyCODONE/APAP 5/325 TABLET PO PRN ×2 (01:04→08:59)
[2020-07-31 07:08] VITALS: BP 148/92
[2020-07-31] MEDS: carvediloL 6.25 MG TABLET PO SCH (08:59)
[2020-07-31] MEDS: Loratadine 10 MG TABLET PO SCH (08:59)
[2020-07-31] MEDS: *HR* Enoxaparin 40 MG/0.4 ML SYRINGE SQ SCH (08:59)
[2020-07-31] MEDS: Aspirin Enteric Coated 81 MG Tablet PO SCH (08:59)
[2020-07-31] MEDS: Cholecalciferol (D-3) 1,000 UNIT (25MCG) TABLET PO SCH (08:59)
[2020-07-31] MEDS: Insulin DETEMIR 100 UNIT/ML X5UNITS SUBQ SCH (09:00)
[2020-07-31] MEDS: Insulin LISPRO 300 UNITS/3 ML VIAL SUBQ SCH ×4 (09:00→11:59)
[2020-07-31] MEDS: Fluticasone Propionate Nasal 50 MCG/SPRAY BOTTLE NS SCH (09:00)
[2020-07-31] MEDS: Furosemide 40 MG TABLET PO SCH (09:01)
[2020-07-31] MEDS: Nystatin POWDER 30 GM BOTTLE TP SCH (09:01)
[2020-07-31] MEDS: ZINC 50 MG PO SCH (09:01)
[2020-07-31] MEDS: Sennosides/Docusate Sodium TABLET PO SCH (09:01)
== END 2020-07-31 15:59 | disposition home health service (06) | DRG 949 ==
LOC: INPPIK 20:40
PROVIDERS: ADMIT Family Medicine; ATTEND Family Medicine

== ENCOUNTER 2021-05-15 18:28 | Inpatient (IN) ==
[2021-05-15] MEDS ORDERED: *HR* HYDROcodone/Acet 5/325 mg TABLET PO PRN (20:11)
[2021-05-15] MEDS ORDERED: Insulin DETEMIR 100 UNIT/ML per UNIT SUBQ ONE (21:00)
[2021-05-15] MEDS: cephALEXin 500 MG CAPSULE PO SCH (21:50)
[2021-05-15] MEDS: Gabapentin 400 MG CAPSULE PO SCH (21:50)
[2021-05-15] MEDS: *HR* Metformin 500 MG TABLET PO SCH (21:50)
[2021-05-15] MEDS: carvediloL 6.25 MG TABLET PO SCH (21:50)
[2021-05-16] MEDS: *HR* Enoxaparin 40 MG/0.4 ML SYRINGE SQ SCH ×2 (06:32→16:53)
[2021-05-16 06:51] LABS: Basophils % 0.4 %; Eosinophils # 0.5 K/mcL (0.0-0.6); Eosinophils % 6.5 %; Hematocrit 29.4 % (37.5-50.1); Hemoglobin 8.2 g/dL (12.9-16.9); Immature Granulocytes % 2.7 % (0-4); Lymphocytes # 1.5 K/mcL (0.6-4.6); Lymphocytes % 18.6 %; Mean Corpuscular HGB Conc 27.9 g/dL (31.6-35.5); Mean Corpuscular Hemoglobin 23.8 pg (28.0-33.3); Mean Corpuscular Volume 85.2 fL (83.0-100.0); Mean Platelet Volume 10.2 fL (9.4-12.4); Monocytes # 0.6 K/mcL (0.0-1.3); Monocytes % 7.5 %; Neutrophils # 5.3 K/mcL (1.6-8.9); Nucleated Red Blood Cells 0.2 /100 WBC (0); Platelet Count 304 K/mcL (140-400); Red Blood Count 3.45 M/mcL (4.19-5.50); Red Cell Distribution Width 17.6 % (11.5-14.5); Segmented Neutrophils % 64.3 %; White Blood Count 8.2 K/mcL (4.3-11.1)
[2021-05-16 07:09] LABS: BUN/Creatinine Ratio 17 (6-26); Blood Urea Nitrogen 16 mg/dL (6-20); Calcium 8.5 mg/dL (8.6-10.3); Carbon Dioxide 28 mEq/L (23-29); Chloride 101 mEq/L (98-107); Glucose 264 mg/dL (70-105); Osmolality,Calculated 292 (280-300); Potassium 4.4 mEq/L (3.5-5.1); Sodium 136 mEq/L (136-145); eGFR For African Americans > 60 (> 60); eGFR For Non-African Americans > 60 (> 60)
[2021-05-16] MEDS: Multivit/Ca/Min/Fe/FA 1 TAB TABLET PO SCH (08:07)
[2021-05-16] MEDS: cephALEXin 500 MG CAPSULE PO SCH (08:08)
[2021-05-16] MEDS: Azithromycin 250 MG TABLET PO SCH (08:08)
[2021-05-16] MEDS: Gabapentin 400 MG CAPSULE PO SCH ×3 (08:09→21:11)
[2021-05-16] MEDS: carvediloL 6.25 MG TABLET PO SCH ×2 (08:09→21:12)
[2021-05-16] MEDS: Cholecalciferol (D-3) 1,000 UNIT (25MCG) TABLET PO SCH (08:09)
[2021-05-16] MEDS: Aspirin 325 MG TABLET PO SCH (08:09)
[2021-05-16] MEDS: *HR* Metformin 500 MG TABLET PO SCH ×2 (08:10→16:53)
[2021-05-16] MEDS: Furosemide 20 MG TABLET PO SCH (08:10)
[2021-05-16] MEDS: *HR* Glimepiride 2 MG TABLET PO SCH (08:10)
[2021-05-16] MEDS: *HR* Pioglitazone 15 MG TABLET PO SCH (08:12)
[2021-05-16] MEDS: *HR* OxyCODONE/APAP 5/325 TABLET PO PRN ×2 (08:22→16:52)
[2021-05-16] MEDS: Insulin LISPRO 300 UNITS/3 ML VIAL SUBQ SCH ×5 (08:23→21:13)
[2021-05-16] MEDS ORDERED: ZINC 50 MG PO SCH (09:00)
[2021-05-16] MEDS ORDERED: *HR* Dextrose 50 % in Water (Syg) 50 ML SYRINGE IVP PRN (12:02)
[2021-05-16] MEDS ORDERED: Dextrose Gel 15 GM/37.5 ML TUBE PO PRN ×2 (12:02)
[2021-05-16] MEDS ORDERED: D5% in Water 1,000 ML IVC PRN (12:02)
[2021-05-16] MEDS: Cefdinir 300 MG CAPSULE PO SCH (21:12)
[2021-05-16] MEDS: Insulin DETEMIR 100 UNIT/ML X5UNITS SUBQ SCH (21:12)
[2021-05-17] MEDS: *HR* Enoxaparin 40 MG/0.4 ML SYRINGE SQ SCH ×2 (05:26→16:37)
[2021-05-17] MEDS: *HR* OxyCODONE/APAP 5/325 TABLET PO PRN ×3 (05:26→21:40)
[2021-05-17] MEDS: Cholecalciferol (D-3) 1,000 UNIT (25MCG) TABLET PO SCH (09:13)
[2021-05-17] MEDS: *HR* Metformin 500 MG TABLET PO SCH ×2 (09:13→16:37)
[2021-05-17] MEDS: Cefdinir 300 MG CAPSULE PO SCH ×2 (09:13→21:33)
[2021-05-17] MEDS: Multivit/Ca/Min/Fe/FA 1 TAB TABLET PO SCH (09:13)
[2021-05-17] MEDS: *HR* Pioglitazone 15 MG TABLET PO SCH (09:14)
[2021-05-17] MEDS: Furosemide 20 MG TABLET PO SCH (09:14)
[2021-05-17] MEDS: Aspirin 325 MG TABLET PO SCH (09:14)
[2021-05-17] MEDS: Azithromycin 250 MG TABLET PO SCH (09:14)
[2021-05-17] MEDS: *HR* Glimepiride 2 MG TABLET PO SCH (09:14)
[2021-05-17] MEDS: carvediloL 6.25 MG TABLET PO SCH ×2 (09:15→23:13)
[2021-05-17] MEDS: Gabapentin 400 MG CAPSULE PO SCH ×3 (09:15→21:33)
[2021-05-17] MEDS: Insulin LISPRO 300 UNITS/3 ML VIAL SUBQ SCH ×6 (09:20→21:35)
[2021-05-17] MEDS: MethylPREDNISolone 40 MG/ML VIAL IVP SCH (15:12)
[2021-05-17] MEDS: Insulin DETEMIR 100 UNIT/ML X5UNITS SUBQ SCH (21:34)
[2021-05-18] MEDS: MethylPREDNISolone 40 MG/ML VIAL IVP SCH ×2 (05:48→17:28)
[2021-05-18] MEDS: *HR* Enoxaparin 40 MG/0.4 ML SYRINGE SQ SCH ×2 (05:49→17:29)
[2021-05-18] MEDS: *HR* Pioglitazone 15 MG TABLET PO SCH (08:35)
[2021-05-18] MEDS: Furosemide 20 MG TABLET PO SCH (08:36)
[2021-05-18] MEDS: Gabapentin 400 MG CAPSULE PO SCH ×3 (08:37→23:01)
[2021-05-18] MEDS: carvediloL 6.25 MG TABLET PO SCH ×2 (08:38→23:01)
[2021-05-18] MEDS: Cholecalciferol (D-3) 1,000 UNIT (25MCG) TABLET PO SCH (08:38)
[2021-05-18] MEDS: Multivit/Ca/Min/Fe/FA 1 TAB TABLET PO SCH (08:39)
[2021-05-18] MEDS: Azithromycin 250 MG TABLET PO SCH (08:39)
[2021-05-18] MEDS: Aspirin 325 MG TABLET PO SCH (08:39)
[2021-05-18] MEDS: *HR* OxyCODONE/APAP 5/325 TABLET PO PRN ×2 (08:39→17:29)
[2021-05-18] MEDS: Cefdinir 300 MG CAPSULE PO SCH ×2 (08:39→23:01)
[2021-05-18] MEDS: *HR* Glimepiride 2 MG TABLET PO SCH (08:39)
[2021-05-18] MEDS: Insulin LISPRO 300 UNITS/3 ML VIAL SUBQ SCH ×6 (08:40→23:04)
[2021-05-18] MEDS: *HR* Metformin 500 MG TABLET PO SCH ×2 (09:04→16:39)
[2021-05-18] MEDS: Insulin DETEMIR 100 UNIT/ML X5UNITS SUBQ SCH (23:04)
[2021-05-19] MEDS: *HR* OxyCODONE/APAP 5/325 TABLET PO PRN ×2 (01:25→10:11)
[2021-05-19] MEDS: *HR* Metformin 500 MG TABLET PO SCH ×2 (10:05→17:15)
[2021-05-19] MEDS: *HR* Enoxaparin 40 MG/0.4 ML SYRINGE SQ SCH ×2 (10:05→17:17)
[2021-05-19] MEDS: MethylPREDNISolone 40 MG/ML VIAL IVP SCH ×2 (10:05→17:18)
[2021-05-19] MEDS: carvediloL 6.25 MG TABLET PO SCH ×2 (10:09→20:38)
[2021-05-19] MEDS: Furosemide 20 MG TABLET PO SCH (10:09)
[2021-05-19] MEDS: *HR* Pioglitazone 15 MG TABLET PO SCH (10:10)
[2021-05-19] MEDS: Multivit/Ca/Min/Fe/FA 1 TAB TABLET PO SCH (10:11)
[2021-05-19] MEDS: Azithromycin 250 MG TABLET PO SCH (10:11)
[2021-05-19] MEDS: Insulin LISPRO 300 UNITS/3 ML VIAL SUBQ SCH ×6 (10:12→20:37)
[2021-05-19] MEDS: Gabapentin 400 MG CAPSULE PO SCH ×3 (10:12→20:38)
[2021-05-19] MEDS: Cholecalciferol (D-3) 1,000 UNIT (25MCG) TABLET PO SCH (10:12)
[2021-05-19] MEDS: Cefdinir 300 MG CAPSULE PO SCH ×2 (10:12→20:38)
[2021-05-19] MEDS: *HR* Glimepiride 2 MG TABLET PO SCH (10:12)
[2021-05-19] MEDS: Aspirin 325 MG TABLET PO SCH (10:12)
[2021-05-19] MEDS: Insulin DETEMIR 100 UNIT/ML X5UNITS SUBQ SCH (20:38)
[2021-05-20] MEDS: *HR* Enoxaparin 40 MG/0.4 ML SYRINGE SQ SCH ×2 (05:33→17:09)
[2021-05-20] MEDS: MethylPREDNISolone 40 MG/ML VIAL IVP SCH ×2 (05:33→17:08)
[2021-05-20] MEDS: *HR* OxyCODONE/APAP 5/325 TABLET PO PRN ×2 (05:34→14:15)
[2021-05-20] MEDS: *HR* Pioglitazone 15 MG TABLET PO SCH (08:35)
[2021-05-20] MEDS: Aspirin 325 MG TABLET PO SCH (08:35)
[2021-05-20] MEDS: Gabapentin 400 MG CAPSULE PO SCH ×3 (08:35→19:54)
[2021-05-20] MEDS: Cholecalciferol (D-3) 1,000 UNIT (25MCG) TABLET PO SCH (08:35)
[2021-05-20] MEDS: Azithromycin 250 MG TABLET PO SCH (08:35)
[2021-05-20] MEDS: Cefdinir 300 MG CAPSULE PO SCH ×2 (08:35→19:55)
[2021-05-20] MEDS: Multivit/Ca/Min/Fe/FA 1 TAB TABLET PO SCH (08:35)
[2021-05-20] MEDS: *HR* Metformin 500 MG TABLET PO SCH ×2 (08:35→17:08)
[2021-05-20] MEDS: *HR* Glimepiride 2 MG TABLET PO SCH (08:36)
[2021-05-20] MEDS: Furosemide 20 MG TABLET PO SCH (08:36)
[2021-05-20] MEDS: carvediloL 6.25 MG TABLET PO SCH ×2 (08:36→19:54)
[2021-05-20] MEDS: Insulin LISPRO 300 UNITS/3 ML VIAL SUBQ SCH ×6 (08:37→20:00)
[2021-05-20] MEDS: Insulin DETEMIR 100 UNIT/ML X5UNITS SUBQ SCH (20:00)
[2021-05-21] MEDS: *HR* OxyCODONE/APAP 5/325 TABLET PO PRN ×2 (05:15→15:14)
[2021-05-21] MEDS: *HR* Enoxaparin 40 MG/0.4 ML SYRINGE SQ SCH ×2 (05:15→16:46)
[2021-05-21] MEDS: MethylPREDNISolone 40 MG/ML VIAL IVP SCH (05:17)
[2021-05-21] MEDS: Insulin LISPRO 300 UNITS/3 ML VIAL SUBQ SCH ×6 (09:27→21:36)
[2021-05-21] MEDS: Cefdinir 300 MG CAPSULE PO SCH ×2 (09:29→21:35)
[2021-05-21] MEDS: Cholecalciferol (D-3) 1,000 UNIT (25MCG) TABLET PO SCH (09:29)
[2021-05-21] MEDS: Azithromycin 250 MG TABLET PO SCH (09:29)
[2021-05-21] MEDS: *HR* Metformin 500 MG TABLET PO SCH ×2 (09:30→16:46)
[2021-05-21] MEDS: Gabapentin 400 MG CAPSULE PO SCH ×3 (09:30→21:35)
[2021-05-21] MEDS: *HR* Pioglitazone 15 MG TABLET PO SCH (09:30)
[2021-05-21] MEDS: carvediloL 6.25 MG TABLET PO SCH ×2 (09:30→21:35)
[2021-05-21] MEDS: Multivit/Ca/Min/Fe/FA 1 TAB TABLET PO SCH (09:31)
[2021-05-21] MEDS: *HR* Glimepiride 2 MG TABLET PO SCH (09:31)
[2021-05-21] MEDS: Furosemide 20 MG TABLET PO SCH (09:31)
[2021-05-21] MEDS: Aspirin 325 MG TABLET PO SCH (09:31)
[2021-05-21] MEDS: Insulin DETEMIR 100 UNIT/ML X5UNITS SUBQ SCH (21:36)
[2021-05-22] MEDS: *HR* Enoxaparin 40 MG/0.4 ML SYRINGE SQ SCH ×2 (05:17→16:41)
[2021-05-22] MEDS: Insulin LISPRO 300 UNITS/3 ML VIAL SUBQ SCH ×6 (08:59→20:35)
[2021-05-22] MEDS: *HR* Pioglitazone 15 MG TABLET PO SCH (09:07)
[2021-05-22] MEDS: Azithromycin 250 MG TABLET PO SCH (09:07)
[2021-05-22] MEDS: Multivit/Ca/Min/Fe/FA 1 TAB TABLET PO SCH (09:08)
[2021-05-22] MEDS: Gabapentin 400 MG CAPSULE PO SCH ×3 (09:08→20:33)
[2021-05-22] MEDS: predniSONE 20 MG TABLET PO SCH (09:08)
[2021-05-22] MEDS: *HR* Glimepiride 2 MG TABLET PO SCH (09:08)
[2021-05-22] MEDS: carvediloL 6.25 MG TABLET PO SCH ×2 (09:08→20:33)
[2021-05-22] MEDS: *HR* OxyCODONE/APAP 5/325 TABLET PO PRN ×2 (09:09→16:40)
[2021-05-22] MEDS: *HR* Metformin 500 MG TABLET PO SCH ×2 (09:09→16:40)
[2021-05-22] MEDS: Cholecalciferol (D-3) 1,000 UNIT (25MCG) TABLET PO SCH (09:09)
[2021-05-22] MEDS: Aspirin 325 MG TABLET PO SCH (09:09)
[2021-05-22 09:31] LABS: Hematocrit 36.8 % (37.5-50.1); Hemoglobin 10.5 g/dL (12.9-16.9); Mean Corpuscular HGB Conc 28.5 g/dL (31.6-35.5); Mean Corpuscular Hemoglobin 24.1 pg (28.0-33.3); Mean Corpuscular Volume 84.6 fL (83.0-100.0); Mean Platelet Volume 10.3 fL (9.4-12.4); Platelet Count 315 K/mcL (140-400); Red Blood Count 4.35 M/mcL (4.19-5.50); Red Cell Distribution Width 18.5 % (11.5-14.5); White Blood Count 12.7 K/mcL (4.3-11.1)
[2021-05-22 10:03] LABS: BUN/Creatinine Ratio 29 (6-26); Blood Urea Nitrogen 36 mg/dL (6-20); Calcium 8.6 mg/dL (8.6-10.3); Carbon Dioxide 30 mEq/L (23-29); Chloride 97 mEq/L (98-107); Glucose 215 mg/dL (70-105); Osmolality,Calculated 297 (280-300); Potassium 4.2 mEq/L (3.5-5.1); Sodium 136 mEq/L (136-145); eGFR For African Americans > 60 (> 60); eGFR For Non-African Americans 60 (> 60)
[2021-05-22] MEDS: Furosemide 20 MG TABLET PO SCH (12:06)
[2021-05-22] MEDS: Insulin DETEMIR 100 UNIT/ML X5UNITS SUBQ SCH (20:34)
[2021-05-23] MEDS: *HR* OxyCODONE/APAP 5/325 TABLET PO PRN ×3 (01:47→18:38)
[2021-05-23] MEDS: *HR* Enoxaparin 40 MG/0.4 ML SYRINGE SQ SCH ×2 (05:38→17:14)
[2021-05-23] MEDS: Insulin LISPRO 300 UNITS/3 ML VIAL SUBQ SCH ×6 (07:44→19:59)
[2021-05-23] MEDS: *HR* Pioglitazone 15 MG TABLET PO SCH (09:33)
[2021-05-23] MEDS: *HR* Metformin 500 MG TABLET PO SCH ×2 (09:33→17:15)
[2021-05-23] MEDS: Azithromycin 250 MG TABLET PO SCH (09:34)
[2021-05-23] MEDS: Aspirin 325 MG TABLET PO SCH (09:34)
[2021-05-23] MEDS: Cholecalciferol (D-3) 1,000 UNIT (25MCG) TABLET PO SCH (09:34)
[2021-05-23] MEDS: predniSONE 20 MG TABLET PO SCH (09:35)
[2021-05-23] MEDS: *HR* Glimepiride 2 MG TABLET PO SCH (09:35)
[2021-05-23] MEDS: carvediloL 6.25 MG TABLET PO SCH ×2 (09:35→20:00)
[2021-05-23] MEDS: Gabapentin 400 MG CAPSULE PO SCH ×3 (09:35→20:01)
[2021-05-23] MEDS: Furosemide 20 MG TABLET PO SCH (09:35)
[2021-05-23] MEDS: Multivit/Ca/Min/Fe/FA 1 TAB TABLET PO SCH (09:35)
[2021-05-23] MEDS: Insulin DETEMIR 100 UNIT/ML X5UNITS SUBQ SCH (20:00)
[2021-05-24] MEDS: *HR* OxyCODONE/APAP 5/325 TABLET PO PRN ×2 (05:25→17:13)
[2021-05-24] MEDS: *HR* Enoxaparin 40 MG/0.4 ML SYRINGE SQ SCH ×2 (05:25→17:10)
[2021-05-24 06:30] LABS: Basophils % 0.2 %; Eosinophils # 0.3 K/mcL (0.0-0.6); Eosinophils % 2.6 %; Hematocrit 35.9 % (37.5-50.1); Hemoglobin 10.2 g/dL (12.9-16.9); Immature Granulocytes % 0.6 % (0-4); Lymphocytes # 2.2 K/mcL (0.6-4.6); Lymphocytes % 19.5 %; Mean Corpuscular HGB Conc 28.4 g/dL (31.6-35.5); Mean Corpuscular Hemoglobin 24.2 pg (28.0-33.3); Mean Corpuscular Volume 85.1 fL (83.0-100.0); Mean Platelet Volume 10.8 fL (9.4-12.4); Monocytes # 0.8 K/mcL (0.0-1.3); Monocytes % 6.9 %; Neutrophils # 7.9 K/mcL (1.6-8.9); Platelet Count 328 K/mcL (140-400); Red Blood Count 4.22 M/mcL (4.19-5.50); Red Cell Distribution Width 18.2 % (11.5-14.5); Segmented Neutrophils % 70.2 %; White Blood Count 11.3 K/mcL (4.3-11.1)
[2021-05-24 06:54] LABS: BUN/Creatinine Ratio 30 (6-26); Blood Urea Nitrogen 37 mg/dL (6-20); Calcium 8.8 mg/dL (8.6-10.3); Carbon Dioxide 31 mEq/L (23-29); Chloride 99 mEq/L (98-107); Glucose 117 mg/dL (70-105); Osmolality,Calculated 298 (280-300); Potassium 4.5 mEq/L (3.5-5.1); Sodium 139 mEq/L (136-145); eGFR For African Americans > 60 (> 60); eGFR For Non-African Americans > 60 (> 60)
[2021-05-24 08:20] LABS: Anisocytosis 1+ (Not Present); Platelet Estimate Normal (Normal)
[2021-05-24] MEDS: Furosemide 20 MG TABLET PO SCH (09:11)
[2021-05-24] MEDS: Gabapentin 400 MG CAPSULE PO SCH ×3 (09:11→20:12)
[2021-05-24] MEDS: Aspirin 325 MG TABLET PO SCH (09:11)
[2021-05-24] MEDS: carvediloL 6.25 MG TABLET PO SCH ×2 (09:12→20:12)
[2021-05-24] MEDS: *HR* Pioglitazone 15 MG TABLET PO SCH (09:12)
[2021-05-24] MEDS: predniSONE 20 MG TABLET PO SCH (09:12)
[2021-05-24] MEDS: *HR* Metformin 500 MG TABLET PO SCH ×2 (09:12→17:10)
[2021-05-24] MEDS: Multivit/Ca/Min/Fe/FA 1 TAB TABLET PO SCH (09:12)
[2021-05-24] MEDS: *HR* Glimepiride 2 MG TABLET PO SCH (09:12)
[2021-05-24] MEDS: Cholecalciferol (D-3) 1,000 UNIT (25MCG) TABLET PO SCH (09:12)
[2021-05-24] MEDS: Insulin LISPRO 300 UNITS/3 ML VIAL SUBQ SCH ×6 (09:14→20:10)
[2021-05-24] MEDS: Insulin DETEMIR 100 UNIT/ML X5UNITS SUBQ SCH (20:12)
[2021-05-25] MEDS: *HR* OxyCODONE/APAP 5/325 TABLET PO PRN ×3 (05:29→22:05)
[2021-05-25] MEDS: *HR* Enoxaparin 40 MG/0.4 ML SYRINGE SQ SCH ×2 (05:30→17:04)
[2021-05-25] MEDS: *HR* Glimepiride 2 MG TABLET PO SCH (09:11)
[2021-05-25] MEDS: carvediloL 6.25 MG TABLET PO SCH ×2 (09:11→20:02)
[2021-05-25] MEDS: predniSONE 20 MG TABLET PO SCH (09:11)
[2021-05-25] MEDS: *HR* Metformin 500 MG TABLET PO SCH ×2 (09:11→16:59)
[2021-05-25] MEDS: *HR* Pioglitazone 15 MG TABLET PO SCH (09:11)
[2021-05-25] MEDS: Furosemide 20 MG TABLET PO SCH (09:11)
[2021-05-25] MEDS: Gabapentin 400 MG CAPSULE PO SCH ×3 (09:11→20:02)
[2021-05-25] MEDS: Aspirin 325 MG TABLET PO SCH (09:12)
[2021-05-25] MEDS: Cholecalciferol (D-3) 1,000 UNIT (25MCG) TABLET PO SCH (09:12)
[2021-05-25] MEDS: Multivit/Ca/Min/Fe/FA 1 TAB TABLET PO SCH (09:12)
[2021-05-25] MEDS: Insulin LISPRO 300 UNITS/3 ML VIAL SUBQ SCH ×6 (10:52→20:02)
[2021-05-25] MEDS: Insulin DETEMIR 100 UNIT/ML X5UNITS SUBQ SCH (20:03)
[2021-05-26] MEDS: *HR* Enoxaparin 40 MG/0.4 ML SYRINGE SQ SCH ×2 (05:33→16:17)
[2021-05-26] MEDS: *HR* Pioglitazone 15 MG TABLET PO SCH (08:20)
[2021-05-26] MEDS: *HR* OxyCODONE/APAP 5/325 TABLET PO PRN ×2 (08:20→16:17)
[2021-05-26] MEDS: Multivit/Ca/Min/Fe/FA 1 TAB TABLET PO SCH (08:20)
[2021-05-26] MEDS: Gabapentin 400 MG CAPSULE PO SCH ×3 (08:20→21:36)
[2021-05-26] MEDS: Aspirin 325 MG TABLET PO SCH (08:21)
[2021-05-26] MEDS: Insulin LISPRO 300 UNITS/3 ML VIAL SUBQ SCH ×6 (08:21→20:36)
[2021-05-26] MEDS: carvediloL 6.25 MG TABLET PO SCH ×2 (08:21→21:36)
[2021-05-26] MEDS: Cholecalciferol (D-3) 1,000 UNIT (25MCG) TABLET PO SCH (08:21)
[2021-05-26] MEDS: *HR* Glimepiride 2 MG TABLET PO SCH (08:21)
[2021-05-26] MEDS: Furosemide 20 MG TABLET PO SCH (08:21)
[2021-05-26] MEDS: *HR* Metformin 500 MG TABLET PO SCH ×2 (08:21→16:17)
[2021-05-26] MEDS: Insulin DETEMIR 100 UNIT/ML X5UNITS SUBQ SCH (21:37)
[2021-05-27] MEDS: *HR* Enoxaparin 40 MG/0.4 ML SYRINGE SQ SCH ×2 (05:30→16:36)
[2021-05-27] MEDS: Gabapentin 400 MG CAPSULE PO SCH ×3 (11:21→20:20)
[2021-05-27] MEDS: carvediloL 6.25 MG TABLET PO SCH ×2 (11:21→20:20)
[2021-05-27] MEDS: Aspirin 325 MG TABLET PO SCH (11:21)
[2021-05-27] MEDS: Multivit/Ca/Min/Fe/FA 1 TAB TABLET PO SCH (11:22)
[2021-05-27] MEDS: *HR* Pioglitazone 15 MG TABLET PO SCH (11:22)
[2021-05-27] MEDS: *HR* Glimepiride 2 MG TABLET PO SCH (11:22)
[2021-05-27] MEDS: Furosemide 20 MG TABLET PO SCH (11:22)
[2021-05-27] MEDS: Cholecalciferol (D-3) 1,000 UNIT (25MCG) TABLET PO SCH (11:22)
[2021-05-27] MEDS: *HR* Metformin 500 MG TABLET PO SCH ×2 (11:22→16:36)
[2021-05-27] MEDS: Insulin LISPRO 300 UNITS/3 ML VIAL SUBQ SCH ×7 (11:23→20:18)
[2021-05-27] MEDS ORDERED: Acetaminophen 325 MG TABLET PO PRN (17:32)
[2021-05-27] MEDS: *HR* OxyCODONE/APAP 5/325 TABLET PO PRN (20:21)
[2021-05-27] MEDS: Insulin DETEMIR 100 UNIT/ML X5UNITS SUBQ SCH (20:22)
[2021-05-28] MEDS: *HR* Enoxaparin 40 MG/0.4 ML SYRINGE SQ SCH ×2 (04:32→17:06)
[2021-05-28] MEDS: *HR* OxyCODONE/APAP 5/325 TABLET PO PRN ×2 (04:32→14:10)
[2021-05-28] MEDS: Insulin LISPRO 300 UNITS/3 ML VIAL SUBQ SCH ×6 (07:34→21:34)
[2021-05-28 07:52] LABS: Basophils % 0.2 %; Eosinophils # 0.4 K/mcL (0.0-0.6); Eosinophils % 4.2 %; Hematocrit 36.6 % (37.5-50.1); Hemoglobin 10.3 g/dL (12.9-16.9); Immature Granulocytes % 0.5 % (0-4); Lymphocytes # 2.6 K/mcL (0.6-4.6); Lymphocytes % 30.5 %; Mean Corpuscular HGB Conc 28.1 g/dL (31.6-35.5); Mean Corpuscular Volume 85.3 fL (83.0-100.0); Mean Platelet Volume 11.1 fL (9.4-12.4); Monocytes # 0.8 K/mcL (0.0-1.3); Monocytes % 9.3 %; Neutrophils # 4.7 K/mcL (1.6-8.9); Platelet Count 311 K/mcL (140-400); Red Blood Count 4.29 M/mcL (4.19-5.50); Red Cell Distribution Width 17.9 % (11.5-14.5); Segmented Neutrophils % 55.3 %; White Blood Count 8.6 K/mcL (4.3-11.1)
[2021-05-28 08:15] LABS: BUN/Creatinine Ratio 26 (6-26); Blood Urea Nitrogen 34 mg/dL (6-20); Calcium 9.1 mg/dL (8.6-10.3); Carbon Dioxide 28 mEq/L (23-29); Chloride 100 mEq/L (98-107); Glucose 135 mg/dL (70-105); Osmolality,Calculated 292 (280-300); Potassium 4.1 mEq/L (3.5-5.1); Sodium 136 mEq/L (136-145); eGFR For African Americans > 60 (> 60); eGFR For Non-African Americans 56 (> 60)
[2021-05-28 08:22] LABS: Anisocytosis 1+ (Not Present); Hypochromasia Present (Not Present); Platelet Estimate Normal (Normal)
[2021-05-28] MEDS: *HR* Metformin 500 MG TABLET PO SCH ×2 (10:04→17:06)
[2021-05-28] MEDS: Furosemide 20 MG TABLET PO SCH (10:04)
[2021-05-28] MEDS: carvediloL 6.25 MG TABLET PO SCH ×2 (10:05→21:32)
[2021-05-28] MEDS: Aspirin 325 MG TABLET PO SCH (10:05)
[2021-05-28] MEDS: Multivit/Ca/Min/Fe/FA 1 TAB TABLET PO SCH (10:06)
[2021-05-28] MEDS: Gabapentin 400 MG CAPSULE PO SCH ×3 (10:06→21:32)
[2021-05-28] MEDS: *HR* Glimepiride 2 MG TABLET PO SCH (10:07)
[2021-05-28] MEDS: *HR* Pioglitazone 15 MG TABLET PO SCH (10:07)
[2021-05-28] MEDS: Cholecalciferol (D-3) 1,000 UNIT (25MCG) TABLET PO SCH (11:32)
[2021-05-28] MEDS: Insulin DETEMIR 100 UNIT/ML X5UNITS SUBQ SCH (21:33)
[2021-05-29] MEDS: *HR* OxyCODONE/APAP 5/325 TABLET PO PRN ×2 (01:32→12:47)
[2021-05-29] MEDS: *HR* Enoxaparin 40 MG/0.4 ML SYRINGE SQ SCH ×2 (06:52→18:00)
[2021-05-29] MEDS: Aspirin 325 MG TABLET PO SCH (09:01)
[2021-05-29] MEDS: *HR* Pioglitazone 15 MG TABLET PO SCH (09:02)
[2021-05-29] MEDS: Gabapentin 400 MG CAPSULE PO SCH ×3 (09:02→19:51)
[2021-05-29] MEDS: Multivit/Ca/Min/Fe/FA 1 TAB TABLET PO SCH (09:03)
[2021-05-29] MEDS: Cholecalciferol (D-3) 1,000 UNIT (25MCG) TABLET PO SCH (09:03)
[2021-05-29] MEDS: carvediloL 6.25 MG TABLET PO SCH ×2 (09:05→19:51)
[2021-05-29] MEDS: *HR* Glimepiride 2 MG TABLET PO SCH (09:05)
[2021-05-29] MEDS: *HR* Metformin 500 MG TABLET PO SCH ×2 (09:10→17:59)
[2021-05-29] MEDS: Insulin LISPRO 300 UNITS/3 ML VIAL SUBQ SCH ×6 (09:11→20:02)
[2021-05-29] MEDS: Furosemide 20 MG TABLET PO SCH (09:12)
[2021-05-29] MEDS: Insulin DETEMIR 100 UNIT/ML X5UNITS SUBQ SCH (20:02)
[2021-05-30] MEDS: *HR* OxyCODONE/APAP 5/325 TABLET PO PRN ×3 (04:07→22:00)
[2021-05-30] MEDS: *HR* Enoxaparin 40 MG/0.4 ML SYRINGE SQ SCH ×2 (05:38→17:33)
[2021-05-30] MEDS: Aspirin 325 MG TABLET PO SCH (09:39)
[2021-05-30] MEDS: Insulin LISPRO 300 UNITS/3 ML VIAL SUBQ SCH ×6 (09:39→20:03)
[2021-05-30] MEDS: carvediloL 6.25 MG TABLET PO SCH ×2 (09:40→19:52)
[2021-05-30] MEDS: Furosemide 20 MG TABLET PO SCH (09:40)
[2021-05-30] MEDS: Gabapentin 400 MG CAPSULE PO SCH ×3 (09:41→19:51)
[2021-05-30] MEDS: *HR* Glimepiride 2 MG TABLET PO SCH (09:41)
[2021-05-30] MEDS: *HR* Pioglitazone 15 MG TABLET PO SCH (09:42)
[2021-05-30] MEDS: Cholecalciferol (D-3) 1,000 UNIT (25MCG) TABLET PO SCH (09:42)
[2021-05-30] MEDS: Multivit/Ca/Min/Fe/FA 1 TAB TABLET PO SCH (09:42)
[2021-05-30] MEDS: *HR* Metformin 500 MG TABLET PO SCH ×2 (09:43→17:31)
[2021-05-30] MEDS: Simethicone 80 MG TAB.CHEW PO PRN (19:52)
[2021-05-30] MEDS: Mag Hydrox/Al Hydrox/Simeth 30 ML UDC PO PRN (19:52)
[2021-05-30] MEDS: Insulin DETEMIR 100 UNIT/ML X5UNITS SUBQ SCH (19:59)
[2021-05-31] MEDS: *HR* Enoxaparin 40 MG/0.4 ML SYRINGE SQ SCH ×2 (05:34→17:52)
[2021-05-31] MEDS: *HR* OxyCODONE/APAP 5/325 TABLET PO PRN ×3 (06:22→22:55)
[2021-05-31] MEDS: carvediloL 6.25 MG TABLET PO SCH ×2 (08:44→20:22)
[2021-05-31] MEDS: *HR* Metformin 500 MG TABLET PO SCH ×2 (08:44→17:53)
[2021-05-31] MEDS: Insulin LISPRO 300 UNITS/3 ML VIAL SUBQ SCH ×6 (08:44→20:25)
[2021-05-31] MEDS: Aspirin 325 MG TABLET PO SCH (08:45)
[2021-05-31] MEDS: Furosemide 20 MG TABLET PO SCH (08:45)
[2021-05-31] MEDS: *HR* Pioglitazone 15 MG TABLET PO SCH (08:45)
[2021-05-31] MEDS: Cholecalciferol (D-3) 1,000 UNIT (25MCG) TABLET PO SCH (08:46)
[2021-05-31] MEDS: Gabapentin 400 MG CAPSULE PO SCH ×3 (08:46→20:23)
[2021-05-31] MEDS: *HR* Glimepiride 2 MG TABLET PO SCH (08:46)
[2021-05-31] MEDS: Multivit/Ca/Min/Fe/FA 1 TAB TABLET PO SCH (08:47)
[2021-05-31] MEDS: Insulin DETEMIR 100 UNIT/ML X5UNITS SUBQ SCH (20:22)
[2021-06-01] MEDS: *HR* Enoxaparin 40 MG/0.4 ML SYRINGE SQ SCH ×2 (06:42→16:57)
[2021-06-01] MEDS: Insulin LISPRO 300 UNITS/3 ML VIAL SUBQ SCH ×6 (08:50→21:14)
[2021-06-01] MEDS: Aspirin 325 MG TABLET PO SCH (10:04)
[2021-06-01] MEDS: Furosemide 20 MG TABLET PO SCH (10:04)
[2021-06-01] MEDS: *HR* Glimepiride 2 MG TABLET PO SCH (10:05)
[2021-06-01] MEDS: Multivit/Ca/Min/Fe/FA 1 TAB TABLET PO SCH (10:05)
[2021-06-01] MEDS: Gabapentin 400 MG CAPSULE PO SCH ×3 (10:05→21:12)
[2021-06-01] MEDS: *HR* OxyCODONE/APAP 5/325 TABLET PO PRN ×2 (10:05→18:13)
[2021-06-01] MEDS: *HR* Pioglitazone 15 MG TABLET PO SCH (10:06)
[2021-06-01] MEDS: *HR* Metformin 500 MG TABLET PO SCH ×2 (10:06→16:57)
[2021-06-01] MEDS: Cholecalciferol (D-3) 1,000 UNIT (25MCG) TABLET PO SCH (10:06)
[2021-06-01] MEDS: carvediloL 6.25 MG TABLET PO SCH ×2 (10:06→21:12)
[2021-06-01 19:27] VITALS: RESP 18; O2SAT 93
[2021-06-01] MEDS: Insulin DETEMIR 100 UNIT/ML X5UNITS SUBQ SCH (21:13)
[2021-06-01] MEDS: Mag Hydrox/Al Hydrox/Simeth 30 ML UDC PO PRN (21:20)
[2021-06-01] MEDS: Simethicone 80 MG TAB.CHEW PO PRN (21:20)
[2021-06-02] MEDS: *HR* OxyCODONE/APAP 5/325 TABLET PO PRN ×2 (04:31→12:38)
[2021-06-02] MEDS: *HR* Enoxaparin 40 MG/0.4 ML SYRINGE SQ SCH (06:30)
[2021-06-02 07:41] VITALS: BP 118/78; PULSE 82; TEMP 97.4
[2021-06-02] MEDS: Insulin LISPRO 300 UNITS/3 ML VIAL SUBQ SCH ×3 (08:00→11:54)
[2021-06-02] MEDS: *HR* Metformin 500 MG TABLET PO SCH (08:01)
[2021-06-02] MEDS: Multivit/Ca/Min/Fe/FA 1 TAB TABLET PO SCH (08:01)
[2021-06-02] MEDS: carvediloL 6.25 MG TABLET PO SCH (08:01)
[2021-06-02] MEDS: Gabapentin 400 MG CAPSULE PO SCH ×2 (08:02→14:39)
[2021-06-02] MEDS: Cholecalciferol (D-3) 1,000 UNIT (25MCG) TABLET PO SCH (08:02)
[2021-06-02] MEDS: Aspirin 325 MG TABLET PO SCH (08:02)
[2021-06-02] MEDS: *HR* Glimepiride 2 MG TABLET PO SCH (08:02)
[2021-06-02] MEDS: *HR* Pioglitazone 15 MG TABLET PO SCH (08:02)
[2021-06-02] MEDS: Furosemide 20 MG TABLET PO SCH (08:03)
== END 2021-06-02 17:30 | disposition home health service (06) | DRG 559 ==
LOC: INPPIK 18:31
PROVIDERS: ADMIT Family Medicine; ATTEND Family Medicine

== ENCOUNTER 2021-12-16 11:31 | Observation (INO) ==
[2021-12-16 12:19] LABS: Basophils % 0.2 %; Eosinophils # 0.4 K/mcL (0.0-0.6); Eosinophils % 4.4 %; Hematocrit 36.6 % (37.5-50.1); Hemoglobin 10.7 g/dL (12.9-16.9); Immature Granulocytes % 0.4 % (0-4); Lymphocytes # 1.3 K/mcL (0.6-4.6); Lymphocytes % 13.9 %; Mean Corpuscular HGB Conc 29.2 g/dL (31.6-35.5); Mean Corpuscular Volume 82.2 fL (83.0-100.0); Mean Platelet Volume 10.3 fL (9.4-12.4); Monocytes # 0.6 K/mcL (0.0-1.3); Monocytes % 6.1 %; Neutrophils # 7.1 K/mcL (1.6-8.9); Platelet Count 273 K/mcL (140-400); Red Blood Count 4.45 M/mcL (4.19-5.50); Red Cell Distribution Width 16.1 % (11.5-14.5); White Blood Count 9.5 K/mcL (4.3-11.1)
[2021-12-16 12:33] LABS: INR 1.2; Prothrombin Time 13.8 Seconds (9.4-12.1)
[2021-12-16 12:39] LABS: Albumin 3.6 g/dL (3.5-5.7); Bilirubin,Total 0.3 mg/dL (0.3-1.0); Calcium 8.8 mg/dL (8.6-10.3); Globulin 3.5 g/dL (2.4-3.5); Potassium 4.6 mEq/L (3.5-5.1); Total Protein 7.1 g/dL (6.4-8.9)
[2021-12-16 13:07] LABS: Bilirubin,Urine Negative (Negative); Blood,Urine Negative (Negative); Clarity,Urine Clear (Clear); Color,Urine Yellow (Yellow); Glucose,Urine (UA) Normal (Normal); Ketones,Urine Negative (Negative); Leukocyte Esterase,Urine Negative (Negative); Nitrite,Urine Negative (Negative); Protein,Urine Negative (Neg-Trace); Specific Gravity,Urine <= 1.005 (1.010-1.025); Urobilinogen,Urine Normal (Normal)
[2021-12-16] MEDS ORDERED: *HR* Heparin 5,000 UNIT/ML VIAL IVP PRN ×2 (13:36)
[2021-12-16] MEDS ORDERED: *HR* Heparin 5,000 UNIT/ML VIAL IVP ONE (13:36)
[2021-12-16] MEDS ORDERED: Naloxone 0.4 MG/ML INJ IVP PRN (13:40)
[2021-12-16] MEDS: Heparin 25,000UNIT/250ML 1/2NS 25,000 UNIT/250 ML IV.SOLN IVC SCH (14:12)
[2021-12-16] MEDS: Pregabalin 75 MG CAPSULE PO SCH ×2 (14:59→20:25)
[2021-12-16] MEDS: *HR* OxyCODONE/APAP 5/325 TABLET PO PRN ×2 (15:02→21:18)
[2021-12-16] MEDS ORDERED: Dextrose Gel 15 GM/37.5 ML TUBE PO PRN ×2 (16:02)
[2021-12-16] MEDS ORDERED: *HR* Dextrose 50 % in Water (Syg) 50 ML SYRINGE IVP PRN (16:02)
[2021-12-16] MEDS ORDERED: D5% in Water 1,000 ML IVC PRN (16:02)
[2021-12-16] MEDS ORDERED: CIDER VINEGAR 500 MG PO SCH (17:00)
[2021-12-16] MEDS: Insulin LISPRO 300 UNITS/3 ML VIAL SUBQ SCH ×2 (18:52→20:24)
[2021-12-16] MEDS: carvediloL 6.25 MG TABLET PO SCH (20:26)
[2021-12-17] MEDS: Heparin 25,000UNIT/250ML 1/2NS 25,000 UNIT/250 ML IV.SOLN IVC SCH ×3 (00:58→21:00)
[2021-12-17] MEDS: *HR* OxyCODONE/APAP 5/325 TABLET PO PRN ×3 (03:10→16:14)
[2021-12-17 05:43] LABS: Basophils % 0.3 %; Eosinophils # 0.5 K/mcL (0.0-0.6); Eosinophils % 5.5 %; Hematocrit 35.6 % (37.5-50.1); Hemoglobin 10.6 g/dL (12.9-16.9); Immature Granulocytes % 0.5 % (0-4); Lymphocytes # 2.6 K/mcL (0.6-4.6); Lymphocytes % 30.2 %; Mean Corpuscular HGB Conc 29.8 g/dL (31.6-35.5); Mean Corpuscular Hemoglobin 24.4 pg (28.0-33.3); Mean Corpuscular Volume 81.8 fL (83.0-100.0); Mean Platelet Volume 10.6 fL (9.4-12.4); Monocytes # 0.6 K/mcL (0.0-1.3); Monocytes % 7.3 %; Neutrophils # 4.8 K/mcL (1.6-8.9); Platelet Count 274 K/mcL (140-400); Red Blood Count 4.35 M/mcL (4.19-5.50); Red Cell Distribution Width 16.1 % (11.5-14.5); Segmented Neutrophils % 56.2 %; White Blood Count 8.6 K/mcL (4.3-11.1)
[2021-12-17 06:05] LABS: Calcium 8.5 mg/dL (8.6-10.3); Magnesium 1.9 mg/dL (1.6-2.6); Potassium 4.1 mEq/L (3.5-5.1)
[2021-12-17 08:54] LABS: % Iron Saturation 8 % (20-55); Iron 34 mcg/dL (65-175); Transferrin 294 mg/dL (203-362)
[2021-12-17] MEDS ORDERED: SAW PALMETTO 80 MG PO SCH (09:00)
[2021-12-17] MEDS: Cholecalciferol (D-3) 1,000 UNIT (25MCG) TABLET PO SCH (09:09)
[2021-12-17] MEDS: Insulin LISPRO 300 UNITS/3 ML VIAL SUBQ SCH ×4 (09:09→21:04)
[2021-12-17] MEDS: Aspirin Enteric Coated 325 MG Tablet PO SCH (09:09)
[2021-12-17] MEDS: Pregabalin 75 MG CAPSULE PO SCH ×3 (09:09→21:03)
[2021-12-17] MEDS: *HR* Glimepiride 2 MG TABLET PO SCH (09:10)
[2021-12-17] MEDS: *HR* Pioglitazone 15 MG TABLET PO SCH (09:10)
[2021-12-17] MEDS: Multivit/Ca/Min/Fe/FA 1 TAB TABLET PO SCH (09:10)
[2021-12-17] MEDS: carvediloL 6.25 MG TABLET PO SCH ×2 (09:10→17:57)
[2021-12-17] MEDS: Furosemide 20 MG TABLET PO SCH (09:10)
[2021-12-17 09:12] LABS: Ferritin 31 ng/mL (20-250)
[2021-12-17 09:18] LABS: Folate > 22.3 ng/mL (3.0-16.0); Vitamin B12 741 pg/mL (250-1100)
[2021-12-18] MEDS: *HR* OxyCODONE/APAP 5/325 TABLET PO PRN ×3 (00:47→20:57)
[2021-12-18] MEDS: Heparin 25,000UNIT/250ML 1/2NS 25,000 UNIT/250 ML IV.SOLN IVC SCH ×2 (06:40→17:18)
[2021-12-18 07:10] LABS: Basophils % 0.2 %; Eosinophils # 0.4 K/mcL (0.0-0.6); Eosinophils % 4.4 %; Hematocrit 35.5 % (37.5-50.1); Hemoglobin 10.4 g/dL (12.9-16.9); Immature Granulocytes % 0.6 % (0-4); Lymphocytes # 2.3 K/mcL (0.6-4.6); Lymphocytes % 27.1 %; Mean Corpuscular HGB Conc 29.3 g/dL (31.6-35.5); Mean Corpuscular Hemoglobin 24.1 pg (28.0-33.3); Mean Corpuscular Volume 82.2 fL (83.0-100.0); Mean Platelet Volume 10.6 fL (9.4-12.4); Monocytes # 0.6 K/mcL (0.0-1.3); Monocytes % 6.4 %; Neutrophils # 5.3 K/mcL (1.6-8.9); Platelet Count 267 K/mcL (140-400); Red Blood Count 4.32 M/mcL (4.19-5.50); Red Cell Distribution Width 15.9 % (11.5-14.5); Segmented Neutrophils % 61.3 %; White Blood Count 8.6 K/mcL (4.3-11.1)
[2021-12-18 07:30] LABS: Calcium 8.9 mg/dL (8.6-10.3); Potassium 4.2 mEq/L (3.5-5.1)
[2021-12-18] MEDS: *HR* Pioglitazone 15 MG TABLET PO SCH (09:16)
[2021-12-18] MEDS: Aspirin Enteric Coated 325 MG Tablet PO SCH (09:16)
[2021-12-18] MEDS: Pregabalin 75 MG CAPSULE PO SCH ×3 (09:16→20:57)
[2021-12-18] MEDS: Multivit/Ca/Min/Fe/FA 1 TAB TABLET PO SCH (09:16)
[2021-12-18] MEDS: carvediloL 6.25 MG TABLET PO SCH ×2 (09:16→16:10)
[2021-12-18] MEDS: Furosemide 20 MG TABLET PO SCH (09:16)
[2021-12-18] MEDS: *HR* Glimepiride 2 MG TABLET PO SCH (09:16)
[2021-12-18] MEDS: Cholecalciferol (D-3) 1,000 UNIT (25MCG) TABLET PO SCH (09:16)
[2021-12-18] MEDS: Insulin LISPRO 300 UNITS/3 ML VIAL SUBQ SCH ×4 (09:17→20:57)
[2021-12-19 07:31] LABS: Hematocrit 34.3 % (37.5-50.1); Hemoglobin 10.1 g/dL (12.9-16.9); Mean Corpuscular HGB Conc 29.4 g/dL (31.6-35.5); Mean Corpuscular Volume 81.7 fL (83.0-100.0); Mean Platelet Volume 10.4 fL (9.4-12.4); Platelet Count 281 K/mcL (140-400); Red Cell Distribution Width 15.9 % (11.5-14.5); White Blood Count 8.2 K/mcL (4.3-11.1)
[2021-12-19] MEDS: Insulin LISPRO 300 UNITS/3 ML VIAL SUBQ SCH ×2 (07:37→12:12)
[2021-12-19] MEDS: *HR* Pioglitazone 15 MG TABLET PO SCH (08:26)
[2021-12-19] MEDS: Multivit/Ca/Min/Fe/FA 1 TAB TABLET PO SCH (08:27)
[2021-12-19] MEDS: Cholecalciferol (D-3) 1,000 UNIT (25MCG) TABLET PO SCH (08:27)
[2021-12-19] MEDS: Pregabalin 75 MG CAPSULE PO SCH ×2 (08:27→15:36)
[2021-12-19] MEDS: *HR* Glimepiride 2 MG TABLET PO SCH (08:27)
[2021-12-19] MEDS: Aspirin Enteric Coated 325 MG Tablet PO SCH (08:27)
[2021-12-19] MEDS: *HR* OxyCODONE/APAP 5/325 TABLET PO PRN ×2 (08:27→15:36)
[2021-12-19] MEDS: Furosemide 20 MG TABLET PO SCH (08:27)
[2021-12-19] MEDS: carvediloL 6.25 MG TABLET PO SCH (08:27)
[2021-12-19 15:02] VITALS: BP 118/82; PULSE 79; RESP 18; TEMP 98.1; O2SAT 94
[2021-12-19] MEDS ORDERED: Flu Vac QV 22-23 (6MOS UP)/PF 0.5 ML SYRINGE IM ONE (15:10)
== END 2021-12-19 16:15 | disposition home or self-care (01) ==
LOC: INPPIK 11:31 → EMEROOPIK 11:31 → INPPIK 15:30 → UNDODISOB 12-18 11:00
PROVIDERS: ADMIT Internal Medicine; ATTEND Internal Medicine